=== PATIENT | male | born 1945 | race Caucasian/White ===

== ENCOUNTER 2019-10-03 17:36 | Emergency (ER) | payer OTHER ==
[~2019-10-03] VITALS: Ht 170.2 cm; Wt 108.9 kg
[~2019-10-03 17:36] MED LIST: ATOR40TA PO; COLC.6 PO; COLCRYS0.6 MG PO; OXYACE5T PO; OXYACE7.5T PO; Percocet 5-3251 EACH PO; RXOXYACE PO; TELM80/12.5 PO
[2019-10-03] MEDS ORDERED: ALLO300 PO (18:21)
[2019-10-03] MEDS ORDERED: Carvedilol25 MG PO (18:21)
[2019-10-03] MEDS ORDERED: FUROSEMIDE40 MG PO (18:21)
[2019-10-03] MEDS ORDERED: NEURONTIN300 MG PO (18:22)
[2019-10-03] MEDS ORDERED: LOSARTAN-HCTZ1 EAC1 PO (18:22)
[2019-10-03] MEDS ORDERED: AMLODIPINE BESYL5 MG PO (18:22)
[2019-10-03] MEDS ORDERED: PRED10 PO (18:36)
== END 2019-10-03 18:54 | disposition home or self-care (01) ==
LOC: ER 17:36
DX: M10.9 Gout, unspecified (principal); G89.29 Other chronic pain; I10 Essential (primary) hypertension; Z79.899 Other long term (current) drug therapy
CPT/HCPCS: 96372; 99283-25; J1885; J7512

== ENCOUNTER → 2021-01-12 | Outpatient (CLI) | payer OTHER ==
[~2021-01-12] MED LIST changes: +ALLO300 PO; +AMLODIPINE BESYL5 MG PO; +Carvedilol25 MG PO; +DELTASONE20 MG PO; +FUROSEMIDE40 MG PO; +HYDR1TAB94 PO; +KETO10 PO; +LOSARTAN-HCTZ1 EAC1 PO; +NEURONTIN300 MG PO; +PRED10 PO
[2021-01-12 16:12] LABS: Source, Urine Voided
[2021-01-12 16:39] LABS: BASOPHILS ABSOLUTE AUTO 0.03 K/mm3 (0.00-0.23); BASOPHILS PERCENT AUTO 0 % (0-2); EOSINOPHILS PERCENT AUTO 0 % (0-6); Hematocrit 33.7 % (37.0-53.0); Hemoglobin 10.6 g/dL (13.5-17.5); IMMATURE GRAN ABSOLUTE AUTO 0.05 K/mm3 (0.00-0.10); IMMATURE GRAN PERCENT AUTO 1 % (0-1); LYMPHOCYTES ABSOLUTE AUTO 1.12 K/mm3 (0.84-5.20); LYMPHOCYTES PERCENT AUTO 15 % (21-46); MONOCYTES ABSOLUTE AUTO 0.45 K/mm3 (0.16-1.47); MONOCYTES PERCENT AUTO 6 % (4-13); Mean Corpuscular HGB Conc 31.5 g/dL (31.5-36.5); Mean Corpuscular Volume 96 fL (80-100); Mean Platelet Volume 9.3 fL (9.1-12.4); NEUTROPHILS ABSOLUTE AUTO 6.03 K/mm3 (1.96-9.15); NEUTROPHILS PERCENT AUTO 78 % (41-73); Platelet Count 261 K/mm3 (150-400); RDW Coefficient Variation 14.4 % (11.7-14.2); RDW Standard Deviation 49.4 fL (35.1-46.3); Red Blood Cell Count 3.53 M/mm3 (4.30-5.90); White Blood Cell Count 7.68 K/mm3 (4.00-11.30)
[2021-01-12 16:40] LABS: Appearance, Urine Clear (Clear); Bilirubin, Urine Neg (Neg); Blood, Urine Neg (Neg); Color, Urine Yellow (P-Yellow); Glucose Qualitative, Urine Neg (Neg); Ketones, Urine Neg (Neg); Leukocyte Esterase, Urine Neg (Neg); Nitrite, Urine Neg (Neg); Protein, Urine Neg (Neg); Urobilinogen, Urine NORM (Normal)
[2021-01-12 17:53] LABS: Protein, Urine Random <5.0 mg/dL (0.0-11.9); Protein/Creat Ratio, Ur Random Unable to Calculate
[2021-01-12 20:15] LABS: Albumin, Blood 3.2 g/dL (3.4-5.0); Anion Gap 4 mmol/L (6-16); Blood Urea Nitrogen 33 mg/dL (8-24); Bun/Creatinine Ratio 21.7 (12.0-20.0); CO2, Blood 27 mmol/L (21-32); Calcium, Blood 9.4 mg/dL (8.5-10.1); Chloride, Blood 107 mmol/L (98-108); Creatinine, Blood 1.52 mg/dL (0.60-1.20); Glomerular Filtration Rate 45 (60-); Glucose, Blood 97 mg/dL (70-99); Phosphorus, Blood 2.9 mg/dL (2.5-4.9); Potassium, Blood 3.4 mmol/L (3.5-5.5); Sodium, Blood 138 mmol/L (136-145)
== END | disposition home or self-care (01) ==
LOC: LAB SHORT 16:07 → LAB 16:07
PROVIDERS: Internal Medicine
DX: N18.31 Chronic kidney disease, stage 3a (principal)
CPT/HCPCS: 36415; 80069; 81003; 82570; 84156; 85025

== ENCOUNTER → 2022-11-13 | Outpatient (CLI) | payer OTHER ==
[~2022-11-13] MED LIST changes: +METPRE4DP PO; +OXYC5 PO
[2022-11-14 11:05] LABS: Stool Occult Bld Immuno 1 Negative (NEGATIVE)
== END | disposition home or self-care (01) ==
LOC: LAB 06:30 → LAB SHORT 06:30
PROVIDERS: Family Medicine
DX: D64.9 Anemia, unspecified (principal)
CPT/HCPCS: G0328

== ENCOUNTER 2023-11-25 23:04 | Emergency (ER) | payer OTHER ==
[~2023-11-25] VITALS: Ht 170.2 cm; Wt 104.3 kg
[2023-11-25] MEDS ORDERED: Albuterol 2.5 MG/3 ML VIAL INH SCH (23:20)
[2023-11-25] MEDS ORDERED: Dexamethasone Sod Phos 10 MG/ML 1ML VIAL IV ONE (23:20)
[2023-11-25 23:27] LABS: BASOPHILS ABSOLUTE AUTO 0.03 K/mm3 (0.00-0.23); BASOPHILS PERCENT AUTO 0 % (0-2); EOSINOPHILS ABSOLUTE AUTO 0.01 K/mm3 (0.00-0.68); EOSINOPHILS PERCENT AUTO 0 % (0-6); Hematocrit 39.8 % (37.0-53.0); Hemoglobin 12.8 g/dL (13.5-17.5); IMMATURE GRAN ABSOLUTE AUTO 0.13 K/mm3 (0.00-0.10); IMMATURE GRAN PERCENT AUTO 1 % (0-1); LYMPHOCYTES PERCENT AUTO 9 % (21-46); MONOCYTES ABSOLUTE AUTO 1.12 K/mm3 (0.16-1.47); MONOCYTES PERCENT AUTO 11 % (4-13); Mean Corpuscular HGB 30.3 pg (26.0-34.0); Mean Corpuscular HGB Conc 32.2 g/dL (31.5-36.5); Mean Corpuscular Volume 94 fL (80-100); Mean Platelet Volume 9.1 fL (9.1-12.4); NEUTROPHILS ABSOLUTE AUTO 7.66 K/mm3 (1.96-9.15); NEUTROPHILS PERCENT AUTO 78 % (41-73); Platelet Count 220 K/mm3 (150-400); RDW Coefficient Variation 13.3 % (11.7-14.2); RDW Standard Deviation 45.4 fL (35.1-46.3); Red Blood Cell Count 4.23 M/mm3 (4.30-5.90); White Blood Cell Count 9.85 K/mm3 (4.00-11.30)
[2023-11-25 23:49] LABS: Albumin, Blood 2.5 g/dL (3.4-5.0); Albumin/Globulin Ratio 0.5 (0.8-1.8); Bilirubin, Total 0.8 mg/dL (0.1-1.0); Bun/Creatinine Ratio 15.6 (12.0-20.0); Calcium, Blood 9.9 mg/dL (8.5-10.1); Creatinine, Blood 1.09 mg/dL (0.60-1.20); Globulin, Blood 4.9 g/dL (2.2-4.0); Potassium, Blood 4.1 mmol/L (3.5-5.5); Total Protein, Blood 7.4 g/dL (6.4-8.2)
[2023-11-26 00:56] LABS: Influenza A, PCR NEGATIVE (NEGATIVE); Influenza B, PCR NEGATIVE (NEGATIVE); Resp Syncytial Virus, PCR NEGATIVE (NEGATIVE); SARS-Cov-2 (COVID-19) PCR, MMC NEGATIVE (NEGATIVE)
[2023-11-26] MEDS ORDERED: NS 1,000 ML IV SCH (03:55)
[2023-11-26] MEDS ORDERED: Albuterol 2.5 MG/3 ML VIAL INH SCH (04:20)
[2023-11-26 09:15] VITALS: BP 151/93
== END 2023-11-26 09:30 | disposition short-term general hospital (02) ==
LOC: ER 23:04
PROVIDERS: Emergency Medicine
DX: J44.1 Chronic obstructive pulmonary disease with (acute) exacerbation (principal); K91.89 Other postprocedural complications and disorders of digestive system; Y83.8 Other surgical procedures as the cause of abnormal reaction of the patient, or of later complication, without mention of misadventure at the time of the procedure; I10 Essential (primary) hypertension; Z79.899 Other long term (current) drug therapy
CPT/HCPCS: 0241U; 70491; 71275; 80053; 83605; 83880; 84484; 85025; 93005; 93010; 94644; 94664; 96374-59; 99285-25; J1100; J7030; Q9967

== ENCOUNTER 2024-04-29 20:41 | Inpatient (IN) | payer OTHER ==
[~2024-04-29] VITALS: Ht 170.2 cm; Wt 215.0 kg
[2024-04-29] MEDS ORDERED: Albuterol 2.5 MG/3 ML VIAL INH SCH (21:00)
[2024-04-29 21:03] LABS: BASOPHILS ABSOLUTE AUTO 0.06 K/mm3 (0.00-0.23); BASOPHILS PERCENT AUTO 0 % (0-2); EOSINOPHILS ABSOLUTE AUTO 0.03 K/mm3 (0.00-0.68); EOSINOPHILS PERCENT AUTO 0 % (0-6); Hematocrit 40.9 % (37.0-53.0); Hemoglobin 12.7 g/dL (13.5-17.5); IMMATURE GRAN PERCENT AUTO 1 % (0-1); LYMPHOCYTES ABSOLUTE AUTO 0.58 K/mm3 (0.84-5.20); LYMPHOCYTES PERCENT AUTO 4 % (21-46); MONOCYTES ABSOLUTE AUTO 1.08 K/mm3 (0.16-1.47); MONOCYTES PERCENT AUTO 7 % (4-13); Mean Corpuscular HGB Conc 31.1 g/dL (31.5-36.5); Mean Corpuscular Volume 93 fL (80-100); Mean Platelet Volume 8.6 fL (9.1-12.4); NEUTROPHILS ABSOLUTE AUTO 13.75 K/mm3 (1.96-9.15); NEUTROPHILS PERCENT AUTO 88 % (41-73); Platelet Count 252 K/mm3 (150-400); RDW Coefficient Variation 13.8 % (11.7-14.2); RDW Standard Deviation 47.4 fL (35.1-46.3); Red Blood Cell Count 4.38 M/mm3 (4.30-5.90)
[2024-04-29] MEDS ORDERED: Azithromycin 500 MG in NS 250 ML IV ONE (21:20)
[2024-04-29] MEDS ORDERED: CefTRIAXone Sodium 1,000 MG in NS 100 ML IV ONE (21:20)
[2024-04-29 21:23] LABS: Albumin/Globulin Ratio 0.7 (0.8-1.8); Bilirubin, Total 0.6 mg/dL (0.1-1.0); Bun/Creatinine Ratio 18.3 (12.0-20.0); Calcium, Blood 9.9 mg/dL (8.5-10.1); Creatinine, Blood 0.98 mg/dL (0.60-1.20); Globulin, Blood 4.4 g/dL (2.2-4.0); Magnesium, Blood 1.6 mg/dL (1.6-2.4); Total Protein, Blood 7.4 g/dL (6.4-8.2)
[2024-04-29 21:40] LABS: Influenza A, PCR NEGATIVE (NEGATIVE); Influenza B, PCR NEGATIVE (NEGATIVE); Resp Syncytial Virus, PCR NEGATIVE (NEGATIVE); SARS-Cov-2 (COVID-19) PCR, MMC NEGATIVE (NEGATIVE)
[2024-04-29] MEDS ORDERED: GuaiFENesin 600 MG TabCR PO ONE (22:00)
[2024-04-29] MEDS ORDERED: FLU VACC TS2024-25(6MOS UP)/PF 45 MCG/0.5 ML SYRINGE IM ONE (23:00)
[2024-04-29] MEDS ORDERED: Furosemide 10 MG/ML 4ML Vial IV SCH (23:00)
[2024-04-29] MEDS ORDERED: Ipratropium/Albuterol SulF 2.5-0.5MG/3 ML Amp INH SCH (23:00)
[2024-04-29] MEDS ORDERED: Acetaminophen 325 MG TABLET PO PRN (23:00)
[2024-04-29] MEDS ORDERED: OxyCODONE HCL 5 MG TAB PO PRN (23:00)
[2024-04-29 23:22] LABS: Base Excess Venous 3.8 mmol/L; Bicarbonate Venous 26.3 mmol/L (24.0-30.0); PCO2 Venous 64.5 mmHg (38-42); pH Blood Venous 7.28 (7.34-7.37)
[2024-04-30] VITALS (15 sets, daily range): BP systolic 92–157; BP diastolic 52–134
[2024-04-30] MEDS ORDERED: Albuterol 2.5 MG/3 ML VIAL INH PRN (02:45)
[2024-04-30 03:32] LABS: Base Excess Venous 6.6 mmol/L; PCO2 Venous 37.8 mmHg (38-42); pH Blood Venous 7.51 (7.34-7.37)
[2024-04-30 03:52] LABS: Hematocrit 38.1 % (37.0-53.0); Hemoglobin 11.8 g/dL (13.5-17.5); Mean Corpuscular HGB 28.7 pg (26.0-34.0); Mean Corpuscular Volume 93 fL (80-100); Mean Platelet Volume 8.7 fL (9.1-12.4); Platelet Count 230 K/mm3 (150-400); RDW Coefficient Variation 13.9 % (11.7-14.2); RDW Standard Deviation 47.4 fL (35.1-46.3); Red Blood Cell Count 4.11 M/mm3 (4.30-5.90); White Blood Cell Count 15.49 K/mm3 (4.00-11.30)
[2024-04-30 04:30] LABS: Albumin, Blood 2.5 g/dL (3.4-5.0); Albumin/Globulin Ratio 0.6 (0.8-1.8); Bilirubin, Total 0.6 mg/dL (0.1-1.0); Bun/Creatinine Ratio 18.8 (12.0-20.0); Calcium, Blood 9.3 mg/dL (8.5-10.1); Creatinine, Blood 0.96 mg/dL (0.60-1.20); Potassium, Blood 3.8 mmol/L (3.5-5.5); Total Protein, Blood 6.5 g/dL (6.4-8.2)
[2024-04-30 04:37] LABS: BAND PERCENT MAN 22 % (0-8); BASOPHILS PERCENT MAN 0 % (0-2); EOSINOPHILS PERCENT MAN 0 % (0-6); LYMPHOCYTES ABSOLUTE MAN 0.61 K/mm3 (0.84-5.20); LYMPHOCYTES PERCENT MAN 4 % (21-46); METAMYELOCYTE ABSOLUTE MAN 0.46 K/mm3 (0.00-0.00); METAMYELOCYTE PERCENT MAN 3 % (0-0); MONOCYTES ABSOLUTE MAN 0.77 K/mm3 (0.16-1.47); MONOCYTES PERCENT MAN 5 % (4-13); MYELOCYTE ABSOLUTE MAN 0.15 K/mm3 (0.00-0.00); MYELOCYTE PERCENT MAN 1 % (0-0); NEUTROPHILS ABSOLUTE MAN 13.47 K/mm3 (1.96-9.15); SEG NEUTROPHILS PERCENT MAN 65 % (41-73); TOTAL CELLS COUNTED 100
--- NOTE | 2024-04-30 06:02 | NUR ---
SHIFT SUMMARY PATIENT WAKES TO VERBAL STIMULI. ABLE TO ANSWER SOME ORIENTATION QUESTIONS BUT PATIENT IS LETHARGIC. BP STABLE. ON TELE READING SR 80s. BIPAP ON SINCE ADMISSION. PATIENT TACHYPENIC DURING THE NIGHT WITH RR 25-30. PATIENT WITH MULTIPLE INCONTINENT VOIDS, PUREWICK PLACED. PATIENT ATTEMPTED TO USE BEDPAN FOR BM, UNSUCCESSFUL PATIENT FELL ASLEEP MULTIPLE TIMES. RESIDENT UPDATED WITH PATIENT'S STATUS PATIENT HAS NOT HAD MUCH IMPROVEMENT SINCE ADMISSION, NO ADDITIONAL ORDERS. OTHERWISE, NO CHANGES. WILL REPORT TO DAY SHIFT RN.
[2024-04-30] MEDS ORDERED: Enoxaparin 40 MG/0.4 ML SYR SC SCH (09:00)
[2024-04-30] MEDS ORDERED: Docusate Sodium 100 MG Cap PO SCH (09:00)
[2024-04-30] MEDS ORDERED: GuaiFENesin 600 MG TabCR PO SCH (09:00)
[2024-04-30] MEDS ORDERED: MethylPREDNISolone Sod Succ 125 MG Vial IV SCH ×2 (09:00→21:00)
[2024-04-30] MEDS ORDERED: Lactobacil 2-S.Thermo-Bifido 1 1 Cap PO SCH (09:00)
--- NOTE | 2024-04-30 10:25 | NUR ---
am note this rn assumed care at 0700 from sandrine rn. vital signs stable. tele sinus rhythm 90s. patient is alert and oriented x4. neuro is intact. patient is able to make needs known and uses call light appropriately. denies pain, chest pain/pressure or shortness of breath. see shift assessment for further detials. md tai in to see patient discussed the need to quit meth for patient oversd [facility], discussed using lasix to get the fluid out of patients lungs and having an echo done today. patient agrees with this plan.
--- NOTE | 2024-04-30 10:29 | NUR ---
am note this rn assumed care at 0700 from keaton rn. vital signs stable. sinus rhythm 90s.spo2 >90% on 3l nc. patient is alert and oriented x4. patient is able to make needs known and uses call light appropriately. patient is one person assist to bedside comode. denies pain, chest pain/pressure or shortness of breath. see shift assessment for further detials. md tai in to discuss plan of care and why patient is currently npo due to aspriation risk. speech in to see patient and kept patient npo and recommending a ENT to come see the patient. this rn called md tai to update, orders for SAT CT neck soft tissues ordered.
[2024-04-30] MEDS ORDERED: MetroNIDAZOLE 500MG/NS 100 ml 100 ML IV SCH (10:30)
[2024-04-30] MEDS ORDERED: TIZANIDINE HCL2 M1 PO (11:18)
[2024-04-30] MEDS ORDERED: SPIR25 PO (11:27)
[2024-04-30] MEDS ORDERED: Prednisone10 MG PO (11:30)
[2024-04-30] MEDS ORDERED: PRED20 PO (11:31)
[2024-04-30] MEDS ORDERED: CefTRIAXone Sodium 1,000 MG in NS 100 ML IV ONE (12:00)
[2024-04-30] MEDS ORDERED: MethylPREDNISolone Sod Succ 125 MG Vial IV ONE (12:00)
[2024-04-30] MEDS ORDERED: NS 250 ML IV PRN (12:05)
[2024-04-30 12:31] LABS: Free Thyroxine 1.04 ng/dL (0.70-1.60); Thyroid Stimulating Hormone 0.457 uIU/mL (0.360-4.800)
--- NOTE | 2024-04-30 13:09 | NUR ---
transfer of care/shift summary this rn gave report to fish vallejo on icu. patient left to icu about 1255 with all belongings. patient transfered to icu for closer monitoring due to patient not having gaf reflex, unable to swallow, right side swelling, and neck ct showing tracheal deviation, and patient mentation becoming more sleepy. medication list complete. this rn called daughter abhilash, to update on patient moving to icu. this rn answered all daughters questions and listended to her. daughter stated patient neck surgery was in february of this year in [place]. this rn passed along this info to primary rn.
--- NOTE | 2024-04-30 17:49 | NUR ---
SHIFT SUMMARY PT IS A&OX4, RESPONDING APPROPRIATLY. ON APPLIANCE TECHNICIAN, HR 80'S, MAPS > 65. ON ROOM AIR, SATS IN THE 90'S. UNABLE TO MANAGE OWN SECRETIONS, DEEP SUCTIONS HIMSELF WITH HANDHELD SUCTION. NECK IS SWOLLEN AND TENDER TO THE TOUCH, PT REPORTS PAIN ON PALPATION. NO STRIDOR NOTED. RHONCHI HEARD T/O ALL LUNG MARTINEZ, MORESO ON R SIDE THAN L SIDE. PUREWIK IN PLACE. UP TO COMMODE IN PCU FOR BM PER REPORT. DAUGHTER INVOLVED WITH CARE. NO ACUTE EVENTS THIS SHIFT.
[2024-04-30] MEDS ORDERED: CefTRIAXone Sodium 2,000 MG in NS 100 ML IV SCH (21:00)
[2024-04-30] MEDS ORDERED: Azithromycin 500 MG in NS 250 ML IV SCH (21:00)
[2024-04-30] MEDS ORDERED: CefTRIAXone Sodium 1,000 MG in NS 100 ML IV SCH (21:00)
[2024-04-30] MEDS ORDERED: Ketorolac Tromethamine 15mg Vial IV PRN (23:00)
[2024-05-01 04:50] VITALS: BP 129/77
[2024-05-01 05:18] LABS: Hematocrit 39.4 % (37.0-53.0); Hemoglobin 12.3 g/dL (13.5-17.5); Mean Corpuscular HGB 28.8 pg (26.0-34.0); Mean Corpuscular HGB Conc 31.2 g/dL (31.5-36.5); Mean Corpuscular Volume 92 fL (80-100); Mean Platelet Volume 8.7 fL (9.1-12.4); Platelet Count 241 K/mm3 (150-400); RDW Coefficient Variation 13.9 % (11.7-14.2); RDW Standard Deviation 47.2 fL (35.1-46.3); Red Blood Cell Count 4.27 M/mm3 (4.30-5.90); White Blood Cell Count 14.28 K/mm3 (4.00-11.30)
--- NOTE | 2024-05-01 05:22 | NUR ---
SHIFT SUMMARY ASSUMED CARE OF PT AT 2330. PT IS A/OX4. HEART SOUNDS REGULAR. LUNG SOUNDS HAVE CRACKLES. PT ON 2L NC MOST OF THE NOC BUT TOOK OF O2 WHILE AWAKE AND SATURATIONS REMAINED ABOVE 95%. PT A 1P SBA WITH WALKER. PT USING WICKING SYSTEM DUE TO INCONTINENCE. PT HAD NO NEW COMPLAINTS OTHER THAN NOT BEING ABLE TO SWOLLOW. PT USING SUCTION SYSTEM FOR ORAL SECRETIONS. PT REPORTED PAIN IN HER BACK, MEDICATED PER EMAR.
[2024-05-01 05:38] LABS: BAND PERCENT MAN 10 % (0-8); BASOPHILS PERCENT MAN 0 % (0-2); EOSINOPHILS PERCENT MAN 0 % (0-6); LYMPHOCYTES ABSOLUTE MAN 0.57 K/mm3 (0.84-5.20); LYMPHOCYTES PERCENT MAN 4 % (21-46); MONOCYTES ABSOLUTE MAN 0.14 K/mm3 (0.16-1.47); MONOCYTES PERCENT MAN 1 % (4-13); NEUTROPHILS ABSOLUTE MAN 13.56 K/mm3 (1.96-9.15); SEG NEUTROPHILS PERCENT MAN 85 % (41-73); TOTAL CELLS COUNTED 100
[2024-05-01 05:45] LABS: Bun/Creatinine Ratio 25.7 (12.0-20.0); Calcium, Blood 9.9 mg/dL (8.5-10.1); Creatinine, Blood 1.13 mg/dL (0.60-1.20); Potassium, Blood 3.6 mmol/L (3.5-5.5)
--- NOTE | 2024-05-01 07:27 | NUR ---
ASSUMED CARE OF PATIENT. SLEEPING DURING BEDSIDE REPORT. TELE SR @ 94 c INTERMITTENT DESATURATION DUE TO APNEA.
[2024-05-01 08:10] VITALS: BP 135/83
--- NOTE | 2024-05-01 08:43 | NUR ---
DR CORREA TO BEDSIDE. NOTIFIED OF FREQUENT DESATURATION. NO NEW RESPIRATORY ORDERS. CONTINUE NPO UNTIL SEEN BY ST. START NS @ 100mL/hr CONTINUOUS FOR FLUID MAINTENANCE. CONTINUE WITH BEDSIDE SELF-SUCTIONING.
[2024-05-01] MEDS ORDERED: NS 1,000 ML IV SCH (08:45)
[2024-05-01] MEDS ORDERED: Furosemide 10 MG/ML 4ML Vial IV SCH (09:00)
[2024-05-01] MEDS ORDERED: Famotidine 10 MG/ML 2ML Vial IV SCH (12:15)
[2024-05-01 12:42] VITALS: BP 140/70
[2024-05-01 16:30] VITALS: BP 144/81
--- NOTE | 2024-05-01 18:02 | NUR ---
END OF SHIFT SUMMARY: A&Ox4. PLEASANT AND COOPERATIVE WITH CARE. CALLS APPROPRIATELY AND IS ABLE TO ADVOCATE NEEDS EFFECTIVELY. CONTINENT OF BOWEL AND BLADDER; PUREWICK FOR STRICT I/Os AND LARGE DOSE IV DIURETICS. SBA c FWW TO BATHROOM. C / O HEARTBURT STATING THAT HE ALWAYS GETS THIS TYPE OF INDIGESTION/HEARTBURN ABOUT FIFTEEN MINUTES AFTER HAVING NEBULIZER TREATMENTS. SPEECH THERAPY TO ROOM FOR RE-EVAL, BUT CONTINUES TO STRUGGLE WITH SWALLOWING AND CONTINUED RECOMMENDATION OF NPO. PT DOES EXPRESS HUNGER. BUT REPORTS HE CANNOT SWALLOW BECAUSE IT DOESN T FEEL RIGHT AND CHOKED SEVERAL TIMES WHILE WORKING WITH ST. NS STARTED @ 100mL/hr FOR HYDRATION.
[2024-05-01 20:09] VITALS: BP 156/84
[2024-05-01 23:07] VITALS: BP 144/87
[2024-05-02 03:31] VITALS: BP 156/84
--- NOTE | 2024-05-02 03:34 | NUR ---
HEADING AND PRIMING TOOL SETTER SUMMARY VSS. ALERT AND ORIENTED. TALKATIVE, COOPERATIVE WITH CARE AND POSITIVE AFFECT. SITTING IN RECLINER MOST OF SHIFT. NOW IN BED GETTING READY TO SLEEP. AWAKE MOST OF SHIFT. IVF AND ANTIBIOTICS INFUSING PER MD ORDERS - SEE MAR FOR DETAILS. UP TO BATHROOM WITH ASSIST. LUNG SOUNDS DIMINISHED PER AUSCULTATION. ABLE TO REPOSITION SELF IN BED WITHOUT ASSIST FOR COMFORT. CALL LIGHT IN REACH, RAILS UP X 2 AND BED IN LOW POSITION FOR SAFETY. REMAINS NPO DUE TO THROAT ISSUES. VOICED HE WOULD SPEAK WITH MD IN THE AM RE DESIRES TO DRINK FLUIDS. WILL CONT TO MONITOR
[2024-05-02 07:18] VITALS: BP 158/79
--- NOTE | 2024-05-02 10:02 | NUR ---
AM NOTE: ASSUMED CARE OF PT AFTER RECEIVING REPORT FROM TALITA PERES AT APPROX 0715. PT IS A&Ox4. INITIALLY, PT REPORTED SEEING RED SPOTS IN HIS ROOM AND ATTEMPTED TO SHOW THIS RN WHERE THEY WERE. THIS RN INFORMED PT THEY WERE NOT REAL, AND AFTER A COUPLE MINUTES PT REPORTED THE SPOTS DISAPPEARED. PT REPORTS FEELING BETTER COMPARED TO YESTERDAY, STATES HIS SWELLING HAS IMPROVED. DR CORREA TO BEDSIDE FOR EVAL. PT PASSES BEDSIDE SWALLOW EVAL, SOFT/BITE SIZE DIET HAS BEEN ORDERED.
[2024-05-02 12:43] VITALS: BP 132/76
[2024-05-02 16:12] VITALS: BP 150/81
--- NOTE | 2024-05-02 17:07 | NUR ---
SHIFT SUMMARY: PT HAS BEEN ALERT, ORIENTED TO ALL, CAN OVERESTIMATE ABILITIES AT TIMES BUT HAS BEEN OVERALL COOPERATIVE W/CARE. ONE EPISODE THIS AM WHERE PT APPEARED TO HAVE VISUAL HALLUCINATION - SEE PREVIOUS NOTE, NO OTHER EPISODES THIS SHIFT. PT DENIES SOB, O2 SATS MAINTAINED >93% ON RA - 1L/MIN. PT DENIES CP, SR ON MONITOR, RATE 90s. PT AND PROVIDER AGREE THAT PT's EDEMA IS IMPROVING. PT PASSES BEDSIDE SWALLOW EVAL, SOFT BITE SIZE DIET ORDERED AND PT IS TOLERATING WELL, SWALLOWING PILLS WHOLE IN LIQUID. REPEAT NECK CT SHOWS IMPROVEMENT TO INFLAMMATION. PT SHOWERS TODAY INDEPENDENTLY. NEW IV (POWERGLIDE) PLACED TO SAVANNAH, INFUSING FLUIDS PER ORDER. AT THIS TIME, PT IS RESTING IN RECLINER W/CALL LIGHT IN REACH.
[2024-05-02 20:10] VITALS: BP 150/78
[2024-05-03 00:47] VITALS: BP 162/86
[2024-05-03 04:12] VITALS: BP 160/80
[2024-05-03 04:32] LABS: BASOPHILS ABSOLUTE AUTO 0.01 K/mm3 (0.00-0.23); BASOPHILS PERCENT AUTO 0 % (0-2); EOSINOPHILS PERCENT AUTO 0 % (0-6); Hematocrit 34.5 % (37.0-53.0); Hemoglobin 10.5 g/dL (13.5-17.5); IMMATURE GRAN ABSOLUTE AUTO 0.05 K/mm3 (0.00-0.10); IMMATURE GRAN PERCENT AUTO 1 % (0-1); LYMPHOCYTES ABSOLUTE AUTO 0.44 K/mm3 (0.84-5.20); LYMPHOCYTES PERCENT AUTO 7 % (21-46); MONOCYTES ABSOLUTE AUTO 0.32 K/mm3 (0.16-1.47); MONOCYTES PERCENT AUTO 5 % (4-13); Mean Corpuscular HGB 28.2 pg (26.0-34.0); Mean Corpuscular HGB Conc 30.4 g/dL (31.5-36.5); Mean Corpuscular Volume 93 fL (80-100); NEUTROPHILS ABSOLUTE AUTO 5.58 K/mm3 (1.96-9.15); NEUTROPHILS PERCENT AUTO 87 % (41-73); Platelet Count 176 K/mm3 (150-400); RDW Standard Deviation 47.3 fL (35.1-46.3); Red Blood Cell Count 3.72 M/mm3 (4.30-5.90)
[2024-05-03 04:53] LABS: Bun/Creatinine Ratio 35.5 (12.0-20.0); Calcium, Blood 9.5 mg/dL (8.5-10.1); Creatinine, Blood 0.96 mg/dL (0.60-1.20); Potassium, Blood 3.5 mmol/L (3.5-5.5)
--- NOTE | 2024-05-03 06:09 | NUR ---
PT HAD NO INCREASED WORK OF BREATHING OR C/O DYSPNEA. NO C/O CP. PT ON ROOM AIR WHILE AWAKE MAINTAINS GOOD SPO2 SAT. PT DOES HAVE PERIODS OF APNEA ASLEEP AND IS SUPPLMENTED WITH O2. EVEN WITH SUPPLEMENTAL O2 PT DID HAVE EPISODES OF LOW SPO2 SAT DROPPING RAPIDILY INTO THE 70S WITH QUICK RECOVERY. PT WAS ABLE TO BE WOKEN UP W/O CHANGE IN MENTAL STATUS. PT DOES REPORT THAT HE HAS A CPAP AT HOME. RESPIRATORY THERAPY IS INVOLVED IN CARE. PT IS AOX4 WHILE AWAKE BUT DID HAVE EPISODES OF CONFUSION DURING THE NIGHT, BELIEVING HE WAS AT HOME. PT WAS EASILY REORIENTED TO BEING IN THE HOSPITAL. PT IS COOPERATIVE BUT OVER-ESTIMATES ABILITY AND ATTEMPTS TO BE INDEPENDENT W/O CALLING NURSING STAFF PRIOR TO GETTING OOB OR OUT OF CHAIR. BED AND CHAIR ALARMS IN PLACE. IV FLUID INFUSION AND IV ABX ARE BEING TOLERATED WELL. PT CONTINUES TO HAVE GOOD URINE OUTPUT BUT HAS SPILLED URINAL UNABLE TO MEASURE X1.
[2024-05-03 07:36] VITALS: BP 170/96
[2024-05-03] MEDS ORDERED: Losartan Potassium 50 MG Tab PO SCH (09:00)
[2024-05-03] MEDS ORDERED: Spironolactone 25 MG Tab PO SCH (09:00)
[2024-05-03] MEDS ORDERED: HydroCHLOROthiazide 25 mg Tab PO SCH (09:00)
[2024-05-03] MEDS ORDERED: PredniSONE 20 MG Tab PO SCH (09:00)
[2024-05-03] MEDS ORDERED: Allopurinol 300 MG Tab PO SCH (09:00)
[2024-05-03 11:35] VITALS: BP 138/79
[2024-05-03] MEDS ORDERED: Potassium Chloride 40 MEQ in NS 250 ML IV ONE (11:35)
[2024-05-03 15:52] VITALS: BP 158/84
--- NOTE | 2024-05-03 18:28 | NUR ---
SHIFT SUMMARY: PT HAS BEEN A&Ox4, ANSWERING QUESTIONS APPROPRIATELY, COOPERATIVE W/CARE. NO CONCERNS FOR HALLUCINATIONS THIS SHIFT. PT WAS A LITTLE AGGRAVATED THIS AM WHEN HE FOUND OUT HIS NEPHEW HAD NOT BEEN FEEDING THE PT's ANIMALS SINCE PT WAS ADMITTED. PT SAID HE NEEDED TO LEAVE TODAY SO HE COULD ADDRESS THE SITUATION, BUT WAS AGREEABLE TO STAY AFTER HEARING FROM HIS DAUGHTER THAT SHE WOULD TAKE CARE OF THEM. O2 SATS MAINTAINED >93% WHILE AWAKE ON RA, BUT PT DESATURATES INTO 70s AT TIMES WHEN SLEEPING. PT STATES HE HAS A HOME CPAP BUT IS NOT COMPLIANT WITH WEARING IT. EDUCATION PROVIDED RE: IMPORTANCE OF USING THE MACHINE, PT IS CURRENTLY WILLING TO TRY CPAP TONIGHT, RT IS AWARE. TELE WAS DC'd TODAY AND PT STATUS CHANGED TO MEDICAL. EDEMA CONTINUES TO BLE, IV FLUIDS DC'd THIS SHIFT. PT EVAL COMPLETED TODAY. PT W/2 SOFT BMs TODAY, USING URINAL W/MINIMAL ASSISTANCE. ST RE-EVALUATED PT TODAY, DIET CHANGED TO PUREE, ORDERS PLACED FOR MODIFIED BARIUM SWALLOW TO TAKE PLACE TOMORROW AT 1100. AT THIS TIME, PT IS RESTING IN RECLINER W/CALL LIGHT IN REACH.
[2024-05-03 21:40] VITALS: BP 169/90
[2024-05-03] MEDS ORDERED: Melatonin 5 MG Tablet PO PRN (22:40)
[2024-05-03] MEDS ORDERED: OLANZapine 10 MG Vial IM PRN (23:50)
[2024-05-04] VITALS (17 sets, daily range): BP systolic 121–172; BP diastolic 66–106
--- NOTE | 2024-05-04 01:29 | NUR ---
PT EXTREMELY CONFUSED. BECAME AGITATED AND REFUSING TO STAY IN BED OR CHAIR. BROKE CAP OFF OF POWERGLIDE. ANOTHER RN ABLE TO SALVAGE LINE. PT STATING THAT HE WAS GOING TO LEAVE. STAFF TOLD HIM THE DOCTOR WAS COMING TO SPEAK WITH HIM; PT STATED IF THE DOCTOR TRIED TO STOP HIM FROM LEAVING, HE (THE PT) "WOULD KNOCK HIS ASS OUT" (THE MD)... PT CALLED HIS NEPHEW, WHOM HE HAS TOLD STAFF SEVERAL TIMES IS A LEADER IN THE [id number]. TOLD HIS NEPHEW TO PROMISE "NOT TO DO ANYTHING" OR "HURT ANYONE" WHEN HE COMES UP HERE TO PICK THE PT UP. MD CAME TO SEE PT; PT ANSWERED ALL QUESTIONS APPROPRIATELY WHILE STILL MAKING NON-SENSICLE COMMENTS. RESIDENT WAS GOING TO CALL PRIMARY MD. ORDERED ZYPREXA IM. ADMINISTERED TO PT. ASSISTED PT TO RECLINER, HE REFUSES TO GET BACK INTO BED. CHAIR ALARM SET. MEDICATION APPEARS INEFFECTIVE. PT CONTINUES TO GET UP FROM CHAIR, SETTING OF ALARM. ATTEMPTED SEVERAL TIMES TO ADMINISTER IV ABT; PT REFUSED. PT CONTINUES TO HAVE HALLUCINATIONS AND CARRY ON CONVERSATIONS WITH PEOPLE THAT AREN'T THERE. HAVE TRIED TO REORIENT UNSUCCESSFULLY; PT ARGUES THAT THE PEOPLE ARE ACTUALLY THERE.
[2024-05-04 02:41] LABS: Base Excess Venous 5.9 mmol/L; pH Blood Venous 7.44 (7.34-7.37)
--- NOTE | 2024-05-04 03:20 | NUR ---
PT IN BUE SOFT RESTRAINTS. MALE PUREWICK PLACED, CONNECTED TO LWS. 5L nc IN PLACE BUT PT INTERMITTENTLY DESATS ALL THE WAY DOWN TO 60% WITH A GOOD WAVE. CALLED RT AND REQUESTED AN OXYMASK D/T PT BEING A MOUTH BREATHER WHEN HE SLEEPS.
[2024-05-04 04:17] LABS: BASOPHILS ABSOLUTE AUTO 0.01 K/mm3 (0.00-0.23); BASOPHILS PERCENT AUTO 0 % (0-2); EOSINOPHILS PERCENT AUTO 0 % (0-6); Hematocrit 36.8 % (37.0-53.0); Hemoglobin 11.3 g/dL (13.5-17.5); IMMATURE GRAN ABSOLUTE AUTO 0.04 K/mm3 (0.00-0.10); IMMATURE GRAN PERCENT AUTO 1 % (0-1); LYMPHOCYTES PERCENT AUTO 17 % (21-46); MONOCYTES PERCENT AUTO 12 % (4-13); Mean Corpuscular HGB Conc 30.7 g/dL (31.5-36.5); Mean Corpuscular Volume 91 fL (80-100); Mean Platelet Volume 9.1 fL (9.1-12.4); NEUTROPHILS ABSOLUTE AUTO 4.01 K/mm3 (1.96-9.15); NEUTROPHILS PERCENT AUTO 70 % (41-73); Platelet Count 207 K/mm3 (150-400); RDW Coefficient Variation 13.9 % (11.7-14.2); RDW Standard Deviation 47.2 fL (35.1-46.3); Red Blood Cell Count 4.03 M/mm3 (4.30-5.90); White Blood Cell Count 5.76 K/mm3 (4.00-11.30)
[2024-05-04 04:39] LABS: Albumin, Blood 2.7 g/dL (3.4-5.0); Albumin/Globulin Ratio 0.7 (0.8-1.8); Bilirubin, Total 0.3 mg/dL (0.1-1.0); Bun/Creatinine Ratio 27.4 (12.0-20.0); Calcium, Blood 9.8 mg/dL (8.5-10.1); Creatinine, Blood 0.88 mg/dL (0.60-1.20); Globulin, Blood 3.7 g/dL (2.2-4.0); Potassium, Blood 3.7 mmol/L (3.5-5.5); Total Protein, Blood 6.4 g/dL (6.4-8.2)
[2024-05-04] MEDS ORDERED: dexmedeTOMIDine 100 ML IV SCH (07:45)
[2024-05-04] MEDS ORDERED: MethylPREDNISolone Sod Succ 125 MG Vial IV SCH (08:00)
--- NOTE | 2024-05-04 08:00 | NUR ---
NURSING PCU DAYSHIFT: Assumed care of pt at approx 0700. Upon entering room, pt had legs over side of the bed, pulling at b/l wrist restraints, and was agitated. Respirations rapid w/accessory muscle use, exp wheezes t/o, O2 sat mid 90's w/2L O2 via mask, continuous O2 monitoring in place. No tele, HRR 80-90's, SBP 140's, BLE edema which had improved from previous day. PG to RICHARD, s/l. [place] system in place draining clear/yellow urine w/700cc of output this a.m. Pt unable to be directed this a.m. Attempted to reposition several times w/o success. Pt frequently trying to hit/kick staff when assessing/providing care. RT at bedside for assessment and breathing tx, mild improvement noted. Hospitalist to bedside to discuss plan of care. Decision made to xfer to ICU for precedex gtt and CPAP. Report provided to accepting RN, farhat completed via bed.
[2024-05-04] MEDS ORDERED: HydrALAZINE HCl 20 MG / ML 1ML Vial IV PRN (14:30)
--- NOTE | 2024-05-04 18:36 | NUR ---
PT RECIEVED FROM PCU. TRANSFERED TOICU FOR AGITATION THROUGHOUT THE NIGHT. THRASHING AROUND IN THE BED, NOT REDIRECTABLE. PRECEDEX GTT STARTED AND EVENTUALLY TITRATED OFF FOR RASS OF -3. PATIENT RESPONDS TO VOICE AT END OF SHIFT BUT UNABLE TO MAINTAIN SAFETY. VEST RESTRAINT REMAINS IN PLACE. FAMILY AT BEDSIDE SAYING THAT THEY HAVE NOTICED THE PATIENT HAVE AMS FOLLOWING LOSARTAN DOSE FROM BEFORE, PCP AND CARDIOLOGY HAVE D/C'D OUTPATIENT DOSE. NOT NOTED ALLERGY AT THIS TIME. CHART REVIEWED SHOWED LOSARTAN DOSE WAS GIVEN YESTERDAY AM FOR THE FIRST TIME. PROVIDER UPDATED AND MED ORDERS CHANGED. PT REMAINS ON 2LNC. VSS, AFEBRILE. ONE EPISODE OF HTN, PRN HYDRALAZINE GIVEN ONCE; GOAL OF SBP <160.
--- NOTE | 2024-05-04 21:47 | NUR ---
ASSUMED CARE: ASSUMED CARE OF PT AT 1900. PT ALERT AND ORIENTED, FOLLOWS DIRECTION AND IS COOPERATIVE WITH CARE. ON 2L NC WITH SPO2 MID TO HIGH 90'S, LUNGS CLEAR/DIM. DENIES SOB. DENIES PAIN T/O. PHOTOGRAPHIC PRESS SCREWMAKER IN PLACE, SR WITH HR 70'S. SBP 150-170. DENIES CP/PRESSURE. PUREWICK IN PLACE, DRAINING TO SUCTION YELLOW URINE. POWERGLIDE TO SAVANNAH INTACT AND INFUSING. PT VERY DROWSY BUT AWAKENS TO VERBAL STIMULI AND IS ABLE TO HOLD A CONVERSATION. MOVING IN BED WITH ASSIST. HELD PO MEDICATION THIS EVENING D/T PT NOT BEING AWAKE ENOUGH TO SAFELY SWALLOW. BED LOW AND LOCKED, CALL LIGHT IN REACH. VINH SANON ASSUMED CARE OF PT AT 2144. REPORT GIVEN.
[2024-05-05] VITALS (14 sets, daily range): BP systolic 120–174; BP diastolic 66–122
[2024-05-05 06:11] LABS: BASOPHILS ABSOLUTE AUTO 0.01 K/mm3 (0.00-0.23); BASOPHILS PERCENT AUTO 0 % (0-2); EOSINOPHILS PERCENT AUTO 0 % (0-6); Hematocrit 40.4 % (37.0-53.0); Hemoglobin 12.3 g/dL (13.5-17.5); IMMATURE GRAN ABSOLUTE AUTO 0.03 K/mm3 (0.00-0.10); IMMATURE GRAN PERCENT AUTO 1 % (0-1); LYMPHOCYTES PERCENT AUTO 7 % (21-46); MONOCYTES ABSOLUTE AUTO 0.45 K/mm3 (0.16-1.47); MONOCYTES PERCENT AUTO 11 % (4-13); Mean Corpuscular HGB 28.2 pg (26.0-34.0); Mean Corpuscular HGB Conc 30.4 g/dL (31.5-36.5); Mean Corpuscular Volume 93 fL (80-100); NEUTROPHILS PERCENT AUTO 82 % (41-73); Platelet Count 189 K/mm3 (150-400); RDW Coefficient Variation 13.8 % (11.7-14.2); RDW Standard Deviation 47.1 fL (35.1-46.3); Red Blood Cell Count 4.36 M/mm3 (4.30-5.90); White Blood Cell Count 4.29 K/mm3 (4.00-11.30)
[2024-05-05 06:43] LABS: BASOPHILS PERCENT MAN 0 % (0-2); EOSINOPHILS ABSOLUTE MAN 0.04 K/mm3 (0.00-0.68); EOSINOPHILS PERCENT MAN 1 % (0-6); LYMPHOCYTES ABSOLUTE MAN 0.34 K/mm3 (0.84-5.20); LYMPHOCYTES PERCENT MAN 8 % (21-46); METAMYELOCYTE ABSOLUTE MAN 0.08 K/mm3 (0.00-0.00); METAMYELOCYTE PERCENT MAN 2 % (0-0); MONOCYTES ABSOLUTE MAN 0.25 K/mm3 (0.16-1.47); MONOCYTES PERCENT MAN 6 % (4-13); NEUTROPHILS ABSOLUTE MAN 3.56 K/mm3 (1.96-9.15); SEG NEUTROPHILS PERCENT MAN 83 % (41-73); TOTAL CELLS COUNTED 100
[2024-05-05 07:10] LABS: Bun/Creatinine Ratio 26.2 (12.0-20.0); Calcium, Blood 9.7 mg/dL (8.5-10.1); Creatinine, Blood 0.8 mg/dL (0.60-1.20); Potassium, Blood 3.8 mmol/L (3.5-5.5)
--- NOTE | 2024-05-05 09:06 | NUR ---
Dr. Reddy here to see the pt. Attempted to reach PT for today to coordinate eval/treatment, but had to leave a message. Pt was seen by Speech therapist, Ashley. He took his pills whole with applesauce with no difficulty. Also had puree breakfast with nectar thick liquids this morning, supervised by ASSEMBLER TUBING while sitting upright in the bed.\
--- NOTE | 2024-05-05 14:09 | NUR ---
Telephone report given to Gabbi Sandoval Pt to transfer to [facility] on medical floor shortly.
--- NOTE | 2024-05-05 14:12 | NUR ---
Call to Beti snell's daughter to notify her of pending transfer to room 310.
--- NOTE | 2024-05-05 17:53 | NUR ---
TRANSFER AND SHIFT SUMMARY PATIENT TRANSFERED FROM ICU. PATIENT ARRIVED VIA WHEELCHAIR. PATIENT ALERT AND INTERACTIVE. PATIENT SHOWERED AFTER ARRIVAL. PATIENT ABLE TO AMBULATE WITH WALKER TO SHOWER. PATIENT NEEDING CUING FOR SAFETY. PATIENT FORGETFUL BUT EASILY REORIENTED.
[2024-05-06 02:06] VITALS: BP 159/117
--- NOTE | 2024-05-06 04:27 | NUR ---
SHIFT SUMMARY 79 YR F ADMITTED ON 04/30/24. FULL CODE. NO ACUTE CHANGES THIS SHIFT. PT HAS BEEN A&O AND INTERACTIVE THIS SHIFT BUT DOES HAVE SOME INTERMITTENT CONFUSION. HE SAT UP IN THE CHAIR WATCHING TV UNTIL 0200 WHEN HE DECIDED TO GET INTO BED AND GO TO SLEEP. HE CALLS APPROPRIATELY FOR ASSISTANCE. HE WAS GIVEN 10 MG HYDRALAZINE AT 0300 FOR ELEVATED BP. HE STATED THAT HE HAS NOT HAD HIS BLOOD PRESSURE MEDS SINCE BEING HOSPITALIZED. HE IS PLEASANT AND COOPERATIVE WITH CARE. BED IN LOW POSITION AND CALL LIGHT IN REACH.
[2024-05-06 07:41] VITALS: BP 167/97
[2024-05-06 09:00] LABS: BASOPHILS ABSOLUTE AUTO 0.01 K/mm3 (0.00-0.23); BASOPHILS PERCENT AUTO 0 % (0-2); EOSINOPHILS PERCENT AUTO 0 % (0-6); Hematocrit 42.4 % (37.0-53.0); Hemoglobin 13.3 g/dL (13.5-17.5); IMMATURE GRAN ABSOLUTE AUTO 0.13 K/mm3 (0.00-0.10); IMMATURE GRAN PERCENT AUTO 2 % (0-1); LYMPHOCYTES ABSOLUTE AUTO 0.29 K/mm3 (0.84-5.20); LYMPHOCYTES PERCENT AUTO 5 % (21-46); MONOCYTES ABSOLUTE AUTO 0.21 K/mm3 (0.16-1.47); MONOCYTES PERCENT AUTO 4 % (4-13); Mean Corpuscular HGB 28.2 pg (26.0-34.0); Mean Corpuscular HGB Conc 31.4 g/dL (31.5-36.5); Mean Corpuscular Volume 90 fL (80-100); NEUTROPHILS ABSOLUTE AUTO 5.01 K/mm3 (1.96-9.15); NEUTROPHILS PERCENT AUTO 89 % (41-73); RDW Coefficient Variation 14.2 % (11.7-14.2); RDW Standard Deviation 46.5 fL (35.1-46.3); Red Blood Cell Count 4.72 M/mm3 (4.30-5.90); White Blood Cell Count 5.65 K/mm3 (4.00-11.30)
[2024-05-06 09:08] LABS: Mean Platelet Volume 9.7 fL (9.1-12.4); Platelet Count 232 K/mm3 (150-400)
[2024-05-06 09:22] LABS: Bun/Creatinine Ratio 30.1 (12.0-20.0); Calcium, Blood 9.9 mg/dL (8.5-10.1); Creatinine, Blood 0.9 mg/dL (0.60-1.20); Potassium, Blood 3.7 mmol/L (3.5-5.5)
--- NOTE | 2024-05-06 09:40 | NUR ---
ASSUMED CARE OF PATIENT. AWAKE AND USING RESTROOM DURING SHIFT CHANGE REPORT. NO ACUTE CONCERNS.
[2024-05-06 15:51] VITALS: BP 171/87
[2024-05-06] MEDS ORDERED: MethylPREDNISolone Sod Succ 125 MG Vial IV SCH (16:00)
[2024-05-06] MEDS ORDERED: Carvedilol 3.125 MG Tab PO SCH (17:00)
--- NOTE | 2024-05-06 18:27 | NUR ---
END OF SHIFT SUMMARY: A&Ox3-4. FORGETFUL AND EPISODIC CONFUSION. TODAY, THOUGHT HE WAS AT HOME AND WANTED HIS OZEMPIC PEN FROM THE [facility] TO ADMINISTER HIS WEEKLY DOSE; ONCE REDIRECTED AND REMEMBERED HE WAS IN THE HOSPITAL, HE ASKED TO CALL HIS DAUGHTER TO HAVE HER BRING MEDICATION UP FROM [facility]. PLEASANT AND COOPERATIVE WITH CARE. CALLS APPROPRIATELY AND IS ABLE TO ADVOCATE NEEDS EFFECTIVELY. 1PA c FWW & GB TO BSC AND RECLINER. PARTICIPATED PT TODAY. SEEN BY SPEECH THERAPY AND DIET ADVANCED TO SOFT AND BITE-SIZED FROM PUREE. CONTINUE WITH MEDS VIA APPLESAUCE. CONTINENT OF BOWEL AND BLADDER. NO C / O PAIN OR DISCOMFORT. CALLED HIS DAUGHTER REPEATEDLY, TALKING ABOUT MEDICATIONS FOR HIS BLOOD PRESSURE AND GOUT, BOTH OF WHICH HE IS RECEIVING. CARVEDILOL ADDED FOR BP CONTROL. DAUGHTER IN TO VISIT BECAUSE PATIENT TOLD HER PT WANTED TO TALK TO HER, BUT TOLD PT THAT DAUGHTER WANTED TO TALK TO PT. NEITHER REQUESTED TO SPEAK WITH THE OTHER. BECAME INCREASINGLY CONFUSED AROUND [id number] C/W , REQUIRING REDIRECTION. BED IN LOWEST POSITION, CALL LIGHT WITHIN REACH, ALL NEEDS MET. REPORT TO ONCOMING NURSE.
[2024-05-06 19:49] VITALS: BP 149/73
[2024-05-07] MEDS ORDERED: Ipratropium/Albuterol SulF 2.5-0.5MG/3 ML Amp INH SCH (00:59)
[2024-05-07 02:32] VITALS: BP 177/91
[2024-05-07 05:06] LABS: BASOPHILS ABSOLUTE AUTO 0.02 K/mm3 (0.00-0.23); BASOPHILS PERCENT AUTO 0 % (0-2); EOSINOPHILS PERCENT AUTO 0 % (0-6); Hematocrit 39.4 % (37.0-53.0); Hemoglobin 12.3 g/dL (13.5-17.5); IMMATURE GRAN ABSOLUTE AUTO 0.15 K/mm3 (0.00-0.10); IMMATURE GRAN PERCENT AUTO 2 % (0-1); LYMPHOCYTES ABSOLUTE AUTO 0.27 K/mm3 (0.84-5.20); LYMPHOCYTES PERCENT AUTO 4 % (21-46); MONOCYTES ABSOLUTE AUTO 0.26 K/mm3 (0.16-1.47); MONOCYTES PERCENT AUTO 4 % (4-13); Mean Corpuscular HGB 28.3 pg (26.0-34.0); Mean Corpuscular HGB Conc 31.2 g/dL (31.5-36.5); Mean Corpuscular Volume 91 fL (80-100); NEUTROPHILS ABSOLUTE AUTO 6.07 K/mm3 (1.96-9.15); NEUTROPHILS PERCENT AUTO 90 % (41-73); Platelet Count 228 K/mm3 (150-400); RDW Coefficient Variation 14.5 % (11.7-14.2); RDW Standard Deviation 48.7 fL (35.1-46.3); Red Blood Cell Count 4.35 M/mm3 (4.30-5.90); White Blood Cell Count 6.77 K/mm3 (4.00-11.30)
[2024-05-07 05:48] LABS: Calcium, Blood 9.5 mg/dL (8.5-10.1)
--- NOTE | 2024-05-07 06:09 | NUR ---
SHIFT SUMMARY 79 YR M ADMITTED ON 04/30/24. FULL CODE. NO ACUTE CHANGES THIS SHIFT. PT STATED THAT HE WAS UNABLE TO SLEEP AND HAD NOT SLEPT IN DAYS. HE WAS VERY RESTLESS AND STILL HAVING CONFUSION. HE ASKED THIS NURSE TO GET IN [facility] RIGHT THERE AND GET HIS OZEMPIC OUT FOR HIM. HE WAS REMINDED THAT HE WAS IN THE HOSPITAL AND HE STATED "OH, YEAH" THEN ASKED ME TO FEED HIS DOG. HE WAS HYPERTENSIVE AGAIN THIS SHIFT AND WAS GIVEN 15 MG HYDROLYZINE. EARLY THIS A.M. PT STATED THAT HE WAS LEAVING TODAY TO GO TO AN APPOINTMENT TO DEAL WITH LEGAL MATTERS. IT IS NOT KNOWN IF HE ACTUALLY HAS AN APPT OR NOT. PT WAS GIVEN AN IM OF ZYPREXA AT 2130 TO RELEIVE ANXIETY AND AID IN SLEEP. PT SLEPT VERY BRIEFLY A COUPLE OF TIMES THROUGHOUT THE NIGHT. WILL CONTINUE TO MONITOR. BED IN LOW POSITION AND CALL LIGHT IN REACH.
[2024-05-07 07:22] VITALS: BP 158/107
[2024-05-07] MEDS ORDERED: Carvedilol 6.25 MG Tab PO SCH (08:00)
[2024-05-07] MEDS ORDERED: TraZODone HCl 50 MG Tab PO PRN (08:05)
[2024-05-07] MEDS ORDERED: PredniSONE 20 MG Tab PO SCH (09:00)
[2024-05-07 10:51] VITALS: BP 153/83
[2024-05-07] MEDS ORDERED: CARV6.25 PO (11:21)
[2024-05-07] MEDS ORDERED: IPRAT-ALBUT 0.5-3 ML INH (11:22)
[2024-05-07] MEDS ORDERED: VISBIOME 112.51 EACH PO (11:23)
[2024-05-07 15:46] VITALS: BP 149/85
--- NOTE | 2024-05-07 17:37 | NUR ---
DISCHARGE SUMMARY PT DC THIS SHIFT HOME WITH HOME HEALTH. PT WAS ESCORED TO PRIVATE VEHICEL VIA WHEELCHAIR BY NANOSCIENCE TECHNICIAN AND PT DAUGHTER TO PRIVATE VEHICLE. DC INSTRUCTION WAS GONE OVER WITH PT WHOM STATED UNDERSTANDING.
[2024-05-07] MEDS ORDERED: Famotidine 20 MG Tab PO SCH (21:00)
== END 2024-05-07 17:37 | disposition home health service (06) | DRG 193 ==
LOC: ER 20:41 → PCU 04-30 → ICUE 04-30 13:17 → PCU 04-30 23:38 → ICUE 05-04 08:01 → MEDS 05-05 14:41 → ENPENDDIS 05-07 10:37 → MEDS 05-07 17:37
PROVIDERS: Internal Medicine; Student in an Organized Health Care Education/Training Program; ADMIT Student in an Organized Health Care Education/Training Program
DX: J18.9 Pneumonia, unspecified organism (principal); I50.33 Acute on chronic diastolic (congestive) heart failure; J96.01 Acute respiratory failure with hypoxia; J96.02 Acute respiratory failure with hypercapnia; I13.0 Hypertensive heart and chronic kidney disease with heart failure and stage 1 through stage 4 chronic kidney disease, or unspecified chronic kidney disease; J44.1 Chronic obstructive pulmonary disease with (acute) exacerbation; J44.0 Chronic obstructive pulmonary disease with (acute) lower respiratory infection; G93.40 Encephalopathy, unspecified; E66.9 Obesity, unspecified; J38.4 Edema of larynx; D63.1 Anemia in chronic kidney disease; G47.33 Obstructive sleep apnea (adult) (pediatric); I25.10 Atherosclerotic heart disease of native coronary artery without angina pectoris; I65.22 Occlusion and stenosis of left carotid artery; N18.9 Chronic kidney disease, unspecified; E78.5 Hyperlipidemia, unspecified; M10.9 Gout, unspecified; R73.9 Hyperglycemia, unspecified; Z95.1 Presence of aortocoronary bypass graft; Z98.1 Arthrodesis status; Z98.890 Other specified postprocedural states; Z79.899 Other long term (current) drug therapy
CPT/HCPCS: 0241U; 36415; 70491; 71045; 71260; 80048; 80053; 82803; 83735; 83880; 84145; 84439; 84443; 84484; 85025; 85379; 87070; 87205; 92526; 92610; 93005; 93010; 93306; 94640; 94660; 94664; 94760; 94761; 94762; 96365; 96367; 96375; 97110; 97112; 97116; 97161; 97530; 99285-25; A9270; J0360; J0456; J0696; J1650; J1885; J1940; J2919; J3480; J7030; J7050; J7512; Q9967

== ENCOUNTER 2024-06-24 13:04 | Emergency (ER) | payer OTHER ==
[~2024-06-24] VITALS: Ht 165.1 cm; Wt 99.8 kg
[~2024-06-24 13:04] MED LIST changes: +CARV6.25 PO; +IPRAT-ALBUT 0.5-3 ML INH; +PRED20 PO; +Prednisone10 MG PO; +SPIR25 PO; +TIZANIDINE HCL2 M1 PO; +VISBIOME 112.51 EACH PO
[2024-06-24 13:32] VITALS: BP 185/111
[2024-06-24] MEDS ORDERED: Colchicine 0.6 MG TAB PO ONE ×3 (13:35→14:30)
[2024-06-24] MEDS ORDERED: HYDROcodone 5-APAP 325 TAB PO ONE (13:40)
[2024-06-24] MEDS ORDERED: PredniSONE 20 MG Tab PO ONE ×2 (13:40→13:50)
[2024-06-24] MEDS ORDERED: Spironolactone 25 MG Tab PO ONE (13:45)
[2024-06-24] MEDS ORDERED: Prednisone20 MG PO (14:27)
[2024-06-24] MEDS ORDERED: Indomethacin50 MG PO (14:27)
== END 2024-06-24 15:02 | disposition home or self-care (01) ==
LOC: ER 13:04
DX: M10.9 Gout, unspecified (principal); R60.0 Localized edema; I10 Essential (primary) hypertension; J44.9 Chronic obstructive pulmonary disease, unspecified
CPT/HCPCS: 99283; A9270; J7512

== ENCOUNTER 2024-07-06 17:30 | Inpatient (IN) | payer OTHER ==
[~2024-07-06] VITALS: Ht 170.2 cm; Wt 84.8 kg
[~2024-07-06 17:30] MED LIST changes: +ATOR20 PO; -ATOR40TA PO; +Indomethacin50 MG PO; +Prednisone20 MG PO
[2024-07-06] MEDS ORDERED: Furosemide 10 MG/ML 4ML Vial IV ONE (17:45)
[2024-07-06 18:58] LABS: BASOPHILS ABSOLUTE AUTO 0.04 K/mm3 (0.00-0.23); BASOPHILS PERCENT AUTO 0 % (0-2); EOSINOPHILS ABSOLUTE AUTO 0.09 K/mm3 (0.00-0.68); EOSINOPHILS PERCENT AUTO 1 % (0-6); Hematocrit 34.1 % (37.0-53.0); IMMATURE GRAN ABSOLUTE AUTO 0.11 K/mm3 (0.00-0.10); IMMATURE GRAN PERCENT AUTO 1 % (0-1); LYMPHOCYTES ABSOLUTE AUTO 0.82 K/mm3 (0.84-5.20); LYMPHOCYTES PERCENT AUTO 8 % (21-46); MONOCYTES ABSOLUTE AUTO 0.87 K/mm3 (0.16-1.47); MONOCYTES PERCENT AUTO 9 % (4-13); Mean Corpuscular HGB 29.3 pg (26.0-34.0); Mean Corpuscular HGB Conc 32.3 g/dL (31.5-36.5); Mean Corpuscular Volume 91 fL (80-100); Mean Platelet Volume 10.7 fL (9.1-12.4); NEUTROPHILS ABSOLUTE AUTO 8.18 K/mm3 (1.96-9.15); NEUTROPHILS PERCENT AUTO 81 % (41-73); Platelet Count 202 K/mm3 (150-400); RDW Coefficient Variation 17.8 % (11.7-14.2); RDW Standard Deviation 59.2 fL (35.1-46.3); Red Blood Cell Count 3.76 M/mm3 (4.30-5.90); White Blood Cell Count 10.11 K/mm3 (4.00-11.30)
[2024-07-06] MEDS ORDERED: CARVEDILOL25 M9 PO (19:11)
[2024-07-06] MEDS ORDERED: AMLODIPINE BESYL5 MG PO (19:11)
[2024-07-06] MEDS ORDERED: PREGABALIN100 MG PO (19:12)
[2024-07-06] MEDS ORDERED: TORSE20 PO (19:13)
[2024-07-06] MEDS ORDERED: Prednisone10 MG (19:15)
[2024-07-06 20:13] LABS: Magnesium, Blood 1.8 mg/dL (1.6-2.4)
[2024-07-06 20:18] LABS: Albumin/Globulin Ratio 0.4 (0.8-1.8); Bilirubin, Total 0.6 mg/dL (0.1-1.0); Bun/Creatinine Ratio 26.2 (12.0-20.0); Calcium, Blood 9.2 mg/dL (8.5-10.1); Creatinine, Blood 0.99 mg/dL (0.60-1.20); Globulin, Blood 5.3 g/dL (2.2-4.0); Potassium, Blood 3.8 mmol/L (3.5-5.5); Total Protein, Blood 7.3 g/dL (6.4-8.2)
[2024-07-06 20:48] LABS: Source, Urine Clean Catch
[2024-07-06 20:51] LABS: Bilirubin, Urine Neg (Neg); Blood, Urine 1+ (Neg); Glucose Qualitative, Urine Neg (Neg); Ketones, Urine Neg (Neg); Leukocyte Esterase, Urine Neg (Neg); Nitrite, Urine Neg (Neg); Protein, Urine Neg (Neg); Urobilinogen, Urine NORM (Normal)
[2024-07-06 20:59] LABS: Appearance, Urine Clear (Clear); Color, Urine Pale Yellow (P-Yellow)
[2024-07-06 21:00] LABS: Bacteria Few /hpf; Squamous Epithelial Cells Rare /hpf (Few); White Blood Cells, Urine 0-2 /hpf (0-5)
[2024-07-06] MEDS ORDERED: Ondansetron HCl 2 MG / ML 2ML Vial IV PRN (22:50)
[2024-07-06] MEDS ORDERED: Tiotropium Bromide 2.5 MCG/ACT MIST INHAL (10 ACT/4 GM) INH SCH (22:50)
[2024-07-06] MEDS ORDERED: Magnesium Hydroxide Conc 10 ML UDC PO PRN (22:50)
[2024-07-06] MEDS ORDERED: Albuterol HFA200 ACT/6.7 GM INH INH PRN (23:05)
[2024-07-06 23:33] VITALS: BP 138/78
[2024-07-06] MEDS ORDERED: Acetaminophen 325 MG TABLET PO PRN (23:50)
[2024-07-07] MEDS ORDERED: OxyCODONE HCL 5 MG TAB PO PRN (00:10)
--- NOTE | 2024-07-07 00:12 | NUR ---
ADMIT NOTE HANDOFF RECEIVED FROM AFTER SCHOOL CAREGIVER ERICKSON. PT ARRIVED TO FLOOR VIA [facility]. PT ORIENTED TO UNIT. CALL BUTTON WITHIN REACH. WOUNDS PHOTOGRAPHED AND DRESSINGS CHANGED. CALLED HOSPITALIST FOR PAIN RX AT PATIENT'S REQUEST. NEW ORDERS IN EMAR. BED ALARM IS ACTIVE.
--- NOTE | 2024-07-07 03:50 | NUR ---
SHIFT SUMMARY ADMITTED FOR FLUID OVERLOAD/CHF EXACERBATION. FULL CODE. PLAN IS TO DIURESE. HE ALSO HAS NECROTIC LOOKING WOUNDS ON BLE HEELS. A LACERATION ON HIS RIGHT LEG W/STITCHES THAT I RE-DRESSED UPON ADMIT TO THIS FLOOR. HE HAS AN EXCORIATED AND RED COCCYX AREA THAT I PUT BARRIER CREAM ON AND COVERED WITH NEW MEPILEX. THERE IS A PODIATRY CONSULT FOR DR. PARRISH. 1 LPM O2, RA @ BASELINE. HE IS ALREADY ON HH SERVICES @ HOME. HE LIVES WITH HIS SON WHO CARES FOR HIM. HE HAS BEEN UNABLE TO AMBULATE FOR OVER A MONTH NOW. BLE 3+ EDEMA. CARDIAC DIET. A&O X4.
[2024-07-07 04:34] VITALS: BP 115/60
[2024-07-07 05:00] LABS: BASOPHILS ABSOLUTE AUTO 0.03 K/mm3 (0.00-0.23); BASOPHILS PERCENT AUTO 0 % (0-2); EOSINOPHILS ABSOLUTE AUTO 0.13 K/mm3 (0.00-0.68); EOSINOPHILS PERCENT AUTO 2 % (0-6); Hematocrit 31.7 % (37.0-53.0); IMMATURE GRAN PERCENT AUTO 1 % (0-1); LYMPHOCYTES ABSOLUTE AUTO 1.02 K/mm3 (0.84-5.20); LYMPHOCYTES PERCENT AUTO 12 % (21-46); MONOCYTES ABSOLUTE AUTO 0.78 K/mm3 (0.16-1.47); MONOCYTES PERCENT AUTO 9 % (4-13); Mean Corpuscular HGB 28.7 pg (26.0-34.0); Mean Corpuscular HGB Conc 31.5 g/dL (31.5-36.5); Mean Corpuscular Volume 91 fL (80-100); Mean Platelet Volume 9.6 fL (9.1-12.4); NEUTROPHILS ABSOLUTE AUTO 6.61 K/mm3 (1.96-9.15); NEUTROPHILS PERCENT AUTO 76 % (41-73); Platelet Count 188 K/mm3 (150-400); RDW Coefficient Variation 17.8 % (11.7-14.2); RDW Standard Deviation 59.3 fL (35.1-46.3); Red Blood Cell Count 3.49 M/mm3 (4.30-5.90); White Blood Cell Count 8.67 K/mm3 (4.00-11.30)
[2024-07-07 05:22] LABS: Albumin, Blood 1.8 g/dL (3.4-5.0); Albumin/Globulin Ratio 0.4 (0.8-1.8); Bilirubin, Total 0.5 mg/dL (0.1-1.0); Bun/Creatinine Ratio 22.4 (12.0-20.0); Calcium, Blood 9.5 mg/dL (8.5-10.1); Creatinine, Blood 1.16 mg/dL (0.60-1.20); Globulin, Blood 4.9 g/dL (2.2-4.0); Potassium, Blood 3.5 mmol/L (3.5-5.5); Total Protein, Blood 6.7 g/dL (6.4-8.2)
[2024-07-07 07:33] VITALS: BP 109/69
[2024-07-07] MEDS ORDERED: Carvedilol 6.25 MG Tab PO SCH ×2 (08:00→09:00)
[2024-07-07] MEDS ORDERED: Carvedilol 25 MG Tab PO SCH ×3 (08:00→09:00)
[2024-07-07] MEDS ORDERED: AmLODIPine Besylate 5 MG Tab PO SCH ×2 (09:00)
[2024-07-07] MEDS ORDERED: Spironolactone 25 MG Tab PO SCH (09:00)
[2024-07-07] MEDS ORDERED: Lactobacil 2-S.Thermo-Bifido 1 1 Cap PO SCH (09:00)
[2024-07-07] MEDS ORDERED: Sennosides 8.6 MG Tab PO SCH (09:00)
[2024-07-07] MEDS ORDERED: Furosemide 10 MG/ML 4ML Vial IV SCH ×2 (09:00→16:00)
[2024-07-07] MEDS ORDERED: Pregabalin 50 MG Capsule PO SCH ×2 (09:00)
[2024-07-07] MEDS ORDERED: Arginine/Glutamine/Calcium Hmb 1 Packet PO SCH (13:35)
[2024-07-07 15:28] VITALS: BP 135/107
[2024-07-07 16:39] LABS: Percent Saturation 12.1 % (20.0-50.0)
[2024-07-07] MEDS ORDERED: CefTRIAXone Sodium 1,000 MG in NS 100 ML IV SCH (18:00)
[2024-07-07] MEDS ORDERED: Vancomycin HCL 1,750 MG in NS 500 ML IV ONE (18:05)
--- NOTE | 2024-07-07 18:34 | NUR ---
WOUND CARE- DR PARRSIH CAME IN, SENAIT HEELS DRESSINGS CHANGED AND RIGHT CALF DRESSING CHANGED. COCCYX WOUND PICTURES IN CHART, VERY EXCORIATED SKIN, POSSIBLE STAGE 2 ULCERATION ON BOTH SIDES OF INNER COCCYX AND POSTEERIOR OF SCROTUMN, PERIWIK IN PLACE, SATS 87% ON RA, 92% ON 2L O2, PATIENT VERY SHAKEY, ATE ALL MEALS, MAKES NEEDS KNOWN, CALL LIGHT WITH IN REACH WILL RELAY TO PM TALITA
[2024-07-07] MEDS ORDERED: NS 250 ML IV PRN (18:55)
[2024-07-07 19:43] VITALS: BP 121/65
--- NOTE | 2024-07-08 03:52 | NUR ---
SHIFT SUMMARY ADMITTED FOR CHF EXACERBATION. FULL CODE. WE ARE DIURESING HIM AND ANTIB RX ARE PRESCRIBED. PODIATRY CONSULT FOR BLE NECROTIC HEEL ULCERS. LACERATION WITH STITCHES ON RIGHT LEG. EXCORIATED COCCYX AREA, BARRIER CREAM AND MEPILEX APPLIED. DAILY DRESSING CHANGE ORDERS ARE IN THE CHART. PUREWICK IN PLACE. HE IS A&O X3, BUT SLOW TO RESPOND. WE HAVE BEEN Q2 TURNING HIM. CARDIAC DIET. HE IS ON BEDREST DUE TO WEAKNESS AND DECONDITIONING. 1 LPM O2, RA @ BASELINE. HE WAS BEING SEEN BY HH @ HOME PREVIOUS TO ADMIT. THE SHAKING I NOTED UPON HIS ADMIT HAS DECREASED ALMOST COMPLETELY THIS SHIFT.
[2024-07-08 05:18] LABS: BASOPHILS ABSOLUTE AUTO 0.03 K/mm3 (0.00-0.23); BASOPHILS PERCENT AUTO 0 % (0-2); EOSINOPHILS ABSOLUTE AUTO 0.09 K/mm3 (0.00-0.68); EOSINOPHILS PERCENT AUTO 1 % (0-6); Hematocrit 30.7 % (37.0-53.0); Hemoglobin 9.7 g/dL (13.5-17.5); IMMATURE GRAN ABSOLUTE AUTO 0.18 K/mm3 (0.00-0.10); IMMATURE GRAN PERCENT AUTO 2 % (0-1); LYMPHOCYTES ABSOLUTE AUTO 0.97 K/mm3 (0.84-5.20); LYMPHOCYTES PERCENT AUTO 11 % (21-46); MONOCYTES ABSOLUTE AUTO 0.75 K/mm3 (0.16-1.47); MONOCYTES PERCENT AUTO 9 % (4-13); Mean Corpuscular HGB 28.9 pg (26.0-34.0); Mean Corpuscular HGB Conc 31.6 g/dL (31.5-36.5); Mean Corpuscular Volume 91 fL (80-100); Mean Platelet Volume 9.4 fL (9.1-12.4); NEUTROPHILS ABSOLUTE AUTO 6.62 K/mm3 (1.96-9.15); NEUTROPHILS PERCENT AUTO 77 % (41-73); Platelet Count 175 K/mm3 (150-400); RDW Coefficient Variation 17.8 % (11.7-14.2); RDW Standard Deviation 59.4 fL (35.1-46.3); Red Blood Cell Count 3.36 M/mm3 (4.30-5.90); White Blood Cell Count 8.64 K/mm3 (4.00-11.30)
[2024-07-08 05:47] LABS: Albumin, Blood 1.6 g/dL (3.4-5.0); Albumin/Globulin Ratio 0.3 (0.8-1.8); Bilirubin, Total 0.7 mg/dL (0.1-1.0); Bun/Creatinine Ratio 21.4 (12.0-20.0); Calcium, Blood 9.3 mg/dL (8.5-10.1); Creatinine, Blood 1.26 mg/dL (0.60-1.20); Potassium, Blood 3.5 mmol/L (3.5-5.5); Total Protein, Blood 6.6 g/dL (6.4-8.2)
[2024-07-08 06:20] VITALS: BP 114/54
[2024-07-08 07:57] VITALS: BP 128/63
[2024-07-08] MEDS ORDERED: Ferrous Sulfate 325 MG Tab PO SCH (08:30)
[2024-07-08] MEDS ORDERED: Furosemide 10 MG/ML 4ML Vial IV SCH (09:00)
[2024-07-08] MEDS ORDERED: Enoxaparin 40 MG/0.4 ML SYR SC SCH (12:00)
[2024-07-08] MEDS ORDERED: MetroNIDAZOLE 500MG/NS 100 ml 100 ML IV SCH (16:00)
[2024-07-08 16:01] VITALS: BP 103/60
[2024-07-08] MEDS ORDERED: CefTRIAXone Sodium 2,000 MG in NS 100 ML IV SCH (18:00)
[2024-07-08 19:05] VITALS: BP 118/65
[2024-07-08] MEDS ORDERED: Vancomycin HCL 1,500 MG in NS 250 ML IV SCH (20:00)
[2024-07-08 23:31] VITALS: BP 110/60
[2024-07-09] VITALS (20 sets, daily range): BP systolic 101–157; BP diastolic 56–78
--- NOTE | 2024-07-09 06:37 | NUR ---
SHIFT SUMMARY PT A&Ox3-4 AND PLEASANT. PT VERY PAINFUL EVEN WITH SLIGHT MOVEMENT. MEDICATED PER EMAR WITH GOOD EFFECT. PT GIVEN IV ABX PER ORDER. MEPALEX ON COCCYX CHANGED AND BARRIER CREAM APPLIED TO EXCORIATED SCROTUM. PT ABLE TO TAKE NIGHT TIME MEDICATIONS WITH SMALL SPOONFULS OF THICKEND JUICE WITHOUT DIFFICULTY. DRESSINGS ON BILATERAL FEET CHANGED BY DR PARRISH ON DAY SHIFT. REMAIN C/D/I. PT ABLE TO SLEEP MOST OF THE NIGHT. REAMINS ON 2L OF OXYGEN. VSS. NO EVENTS ON TELE. BED IN LOWEST POSITION AND CALL LIGHT IN REACH.
[2024-07-09 07:45] LABS: BASOPHILS ABSOLUTE AUTO 0.05 K/mm3 (0.00-0.23); BASOPHILS PERCENT AUTO 1 % (0-2); EOSINOPHILS ABSOLUTE AUTO 0.16 K/mm3 (0.00-0.68); EOSINOPHILS PERCENT AUTO 2 % (0-6); Hematocrit 31.8 % (37.0-53.0); Hemoglobin 9.9 g/dL (13.5-17.5); IMMATURE GRAN ABSOLUTE AUTO 0.23 K/mm3 (0.00-0.10); IMMATURE GRAN PERCENT AUTO 3 % (0-1); LYMPHOCYTES ABSOLUTE AUTO 0.96 K/mm3 (0.84-5.20); LYMPHOCYTES PERCENT AUTO 12 % (21-46); MONOCYTES ABSOLUTE AUTO 0.68 K/mm3 (0.16-1.47); MONOCYTES PERCENT AUTO 8 % (4-13); Mean Corpuscular HGB 28.4 pg (26.0-34.0); Mean Corpuscular HGB Conc 31.1 g/dL (31.5-36.5); Mean Corpuscular Volume 91 fL (80-100); NEUTROPHILS ABSOLUTE AUTO 6.01 K/mm3 (1.96-9.15); NEUTROPHILS PERCENT AUTO 74 % (41-73); NRBC ABSOLUTE 0.02 K/mm3 (0.00-0.02); NRBC Auto 0.2 /100 WBC (0.0-0.2); RDW Coefficient Variation 17.6 % (11.7-14.2); RDW Standard Deviation 58.9 fL (35.1-46.3); Red Blood Cell Count 3.48 M/mm3 (4.30-5.90); White Blood Cell Count 8.09 K/mm3 (4.00-11.30)
[2024-07-09 07:47] LABS: Magnesium, Blood 1.8 mg/dL (1.6-2.4)
[2024-07-09 07:48] LABS: Albumin, Blood 1.5 g/dL (3.4-5.0); Anion Gap 10 mmol/L (3-11); Blood Urea Nitrogen 35 mg/dL (8-24); Bun/Creatinine Ratio 29.7 (12.0-20.0); CO2, Blood 31 mmol/L (21-32); Calcium, Blood 9.1 mg/dL (8.5-10.1); Chloride, Blood 100 mmol/L (98-108); Creatinine, Blood 1.18 mg/dL (0.60-1.20); Glomerular Filtration Rate 64 (60-); Glucose, Blood 92 mg/dL (70-99); Phosphorus, Blood 3.1 mg/dL (2.5-4.9); Potassium, Blood 3.9 mmol/L (3.5-5.5); Sodium, Blood 137 mmol/L (136-145)
[2024-07-09] MEDS ORDERED: Bupivacaine 0.5% HCl 5 MG/ML 30MLVIAL ONE (08:43)
[2024-07-09] MEDS ORDERED: Lidocaine HCl 1% 30 ML SDV ONE (08:43)
[2024-07-09] MEDS ORDERED: Lactated Ringer's 1,000 ML IV SCH (08:55)
[2024-07-09 08:56] LABS: Mean Platelet Volume 10.3 fL (9.1-12.4); Platelet Count 193 K/mm3 (150-400)
[2024-07-09] MEDS ORDERED: propofoL 100 ML IV ONE (08:58)
[2024-07-09] MEDS ORDERED: Lidocaine HCl 4% 5 ML SDA ONE (08:59)
[2024-07-09] MEDS ORDERED: Torsemide 20 MG TAB PO SCH (09:00)
[2024-07-09] MEDS ORDERED: Phenylephrine HCl 100 MCG/ML-NS 10MLSYR (1MG/10ML) ONE (09:46)
[2024-07-09] MEDS ORDERED: ePHEDrine Sulfate 50 MG/ML 1ML Injection ONE (09:46)
[2024-07-09] MEDS ORDERED: Vasopressin 20 UNITS/ML 1ML Vial ONE (09:57)
[2024-07-09] MEDS ORDERED: Ondansetron HCl 2 MG / ML 2ML Vial ONE (10:18)
[2024-07-09] MEDS ORDERED: Dexamethasone Sod Phos 10 MG/ML 1ML VIAL ONE (10:19)
[2024-07-09] MEDS ORDERED: Lidocaine HCl 2% 20 ML MDV ONE (10:25)
--- NOTE | 2024-07-09 10:45 | NUR ---
07/09/24 1045 Sweetie Magaña NOTED: MULTIPLE [id number] TO UPPER AND LOWER EXTREMITES, MULTIPLE ECCCYMOSIS TO OVERALL BODY, MULTIPLE SCABBED AREAS TO OVERALL BODY
--- NOTE | 2024-07-09 11:09 | NUR ---
GAVE REPORT TO GEE OF U 13
--- NOTE | 2024-07-09 12:28 | NUR ---
ARRIVAL TO PCU PT ARRIVES TO PCU AT 1151 FROM SURGERY. HE RESPONDS TO PAIN AND VERBAL STIMULI BUT UNABLE TO ANSWER QUESTIONS. HE IS ON TELE IN NSR 76 BP STABLE. HE IS ON 3L NC WITH CLEAR DIMINISHED LUNG SOUNDS. RR 12. CONTINUOUS SPO2>90%. CAP REFIL <3 ON ALL EXTRIMITIES. PT HAD LARGE FORMED BM, MEPELIX CHANGED ON COCCYX. HIPS FLOATED TO RELIEVE PRESSURE. LOWER EXTRIMITIES ALSO ELEVATED. ELBOW MEPILEX C/D/I. CARE CONTINUES
[2024-07-09 12:44] LABS: Stool Occult Blood Guaiac 1 Neg (Neg)
--- NOTE | 2024-07-09 13:04 | NUR ---
DAUGHTER-MILE HEALY
[2024-07-09 14:13] LABS: CORONAVIRUS COVID-19 AG Negative (NEGATIVE); INFLUENZA A AG Negative (NEGATIVE); INFLUENZA B AG Negative (NEGATIVE)
--- NOTE | 2024-07-09 14:41 | NUR ---
UPDATE: PT MORE ALERT, ABLE TO ANSWER QUESTIONS APPROPRIATLEY AND SWALLOW LIQUIDS.
[2024-07-09 16:14] LABS: Free Thyroxine 1.09 ng/dL (0.70-1.60)
[2024-07-09 16:15] LABS: Thyroid Stimulating Hormone 0.446 uIU/mL (0.360-4.800)
--- NOTE | 2024-07-09 16:53 | NUR ---
PT ABLE TO TOLERATE MEDS 1 AT A TIME CRUSHED IN APPLESAUCE
[2024-07-09 20:02] LABS: Vancomycin, Trough 16.4 ug/mL (5.0-10.0)
[2024-07-10] VITALS (7 sets, daily range): BP systolic 110–133; BP diastolic 60–74
--- NOTE | 2024-07-10 00:17 | NUR ---
ASSUMPTION OF CARE/PATIENT UPDATE THIS RN ASSUMED CARE OF PATIENT AT 1900. PT ANSWERING ALL QUESTIONS APPROPRIATELY BUT OCCASIONALLY GETTING FORGETFUL OF CURRENT SITUATION. PT REPORTED SEEING A "FIRE" IN THE ROOM BUT WAS CALM. FAMILY NOTED MENTATION CHANGES RECENTLY. THIS RN NOTED RT SIDED DEFICITS DURING ASSESSMENT. NOT PREVIOUSLY REPORTED IN OTHER RN'S ASSESSMENTS, HOWEVER, PT WAS SOMNOLENT PREVIOUSLY. PT STATES HE STOPPED BEING ABLE TO USE HIS RT ARM ABOUT 2 WEEKS AGO. NO NOTED CVA HX. NOTED LEFT CAROTID ARTERY STENOSIS IN HX. CT HEAD PREVIOUS DONE D/T SOMNOLENCE. PROVIDER GARDENIA CALLED, NO ORDERS AT THIS TIME. PER PROVIDER, THIS RN WILL REPORT TO DAY TEAM TO SEE IF THEY WANT TO DO A MRI. PT ON 2-3L VIA NC TO MAINTAIN SPO2. SR ON MONITOR. RR 10-12. PT DENIED WANTING CPAP BUT REPORTS THAT HE IS SUPPOSED TO HAVE ONE. OTHER VSS. REPOSITIONING Q2HRS. BED IN LOWEST POSITION AND CALL LIGHT WITHIN REACH.
--- NOTE | 2024-07-10 05:13 | NUR ---
SHIFT SUMMARY PT NOTED TO BE FORGETFUL/CONFUSED AT TIMES. MOSTLY HAS BEEN ORIENTED FULLY AND ANSWERS QUESTIONS APPRORIATELY. PT MORE AWAKE AND HAS BEGUN TO MOVE LEGS MORE. CONTINUES TO BE WEAKER ON THE RT SIDE COMPARED TO THE LEFT. PT ON 2-3L VIA NC TO MAINTAIN SPO2. REFUSED SCD'S. MALE WICKING SYSTEM IN PLACE DRAINING JEREMY COLORED URINE. PT TOLERATED PILLS CRUSHED IN APPLESAUCE. OTHERWISE HAS BEEN NPO. MEPILEX IN PLACE PER ORDER. DRESSINGS ON BILAT HEELS/FEET C/D/I. REPOSITIONING Q2HRS. BED IN LOWEST POSITION AND CALL LIGHT WITHIN REACH. THIS RN WILL REPORT TO ONCOMING DAYSHIFT RN.
--- NOTE | 2024-07-10 16:14 | NUR ---
SHIFT SUMMARY POD 1 I&D BILATERAL HEELS. DRESSINGS TO HEELS REMAINS CDI. DRESSING TO R ZUNIGA CHANGED. PT TOELRATED WELL. WEAKNESS REMAINS TO R ARM DAUGHTER REPORTS THIS HAS BEEN SINCE PATIENT LAST DISCHARGED THE HOSPITAL. PT CONFUSED DURING SHIFT BUT IS PLEASANT AND COOPERATIVE. ATTEMPTS TO HELP WITH REPOSITIONING. FREQUENT REPOSITIONING USING PILLOWS TO HELP WITH PRESSURE SORE ON COCCYX, MEPILEX REMAINS CLEAN. PT TOLERATING DIET WELL DURING SHIFT. NO COUGHING OR CHOKING HEARD.
[2024-07-11 04:00] VITALS: BP 118/58
[2024-07-11 04:55] LABS: Hematocrit 27.3 % (37.0-53.0); Hemoglobin 8.5 g/dL (13.5-17.5); Mean Corpuscular HGB 28.8 pg (26.0-34.0); Mean Corpuscular HGB Conc 31.1 g/dL (31.5-36.5); Mean Corpuscular Volume 93 fL (80-100); Mean Platelet Volume 9.9 fL (9.1-12.4); Platelet Count 201 K/mm3 (150-400); RDW Coefficient Variation 17.5 % (11.7-14.2); RDW Standard Deviation 59.5 fL (35.1-46.3); Red Blood Cell Count 2.95 M/mm3 (4.30-5.90); White Blood Cell Count 8.13 K/mm3 (4.00-11.30)
[2024-07-11 05:33] LABS: Bun/Creatinine Ratio 28.8 (12.0-20.0); Calcium, Blood 9.5 mg/dL (8.5-10.1); Creatinine, Blood 1.11 mg/dL (0.60-1.20); Potassium, Blood 3.5 mmol/L (3.5-5.5)
--- NOTE | 2024-07-11 06:12 | NUR ---
SHIFT SUMMARY PT IS SOMMULENT BUT EASILY AWAKENS TO VERBAL STIMULI &OX4, ABLE TO MAKE NEEDS KNOWN, OBEYS COMMANDS,BLE WEAK BUT PT IS ABLE TO MOVE, RIGHT ARM IS PAINFUL TO MOVE, PT LEFT ARM IS WEAK BUT PT IS ABLE TO MOVE, BED REST QT2. CONTINUOUS SPO2, SPO2 GREATER THAN 90% ON 2L NC FOR APNIC EPISODES WHILE SLEEPING THAT PT DESATES DOWN TO THE 80 S, NO SIGNS OF RESPIRATORY DISTRESS OBSERVED BY THIS RN. CONTINUOUS TELE MONITORING, PT SINUS RHYTHM 80 S, BP STABLE WITH MAP GREATER THAN 65, PT DENIES CHEST P/P T/O THIS SHIFT, PULSES PRESENT T/O, BLE WITH THE RIGHT GREATER THAN THE LEFT. BOWEL TONES PRESENT IN ALL 4Q. PT INCONTINET AT THIS TIME, PT REPORTS THAT BASELINE HE IS ABLE TO TELL WHEN HE NEEDS TO VOID. PT HAS BILATERAL HEEL WOUNDS/ S/P I&D 07/09/ DRESSINGS ARE C/D/I AND ARE SCHEDULED TO BE CHANGED 07/11, PT HAS WOUND TO COCCYX THAT HAS A MEPILEX, PT SCROTUM IS EXORIATED, BURSING T/O BUE, WOUND TO RIGHT ZUNIGA/DRESSING C/D/I, SEE PHOTOS IN CHART. PT IS REPORTING PAIN TO HIS RIGHT ARM THAT IS PAINFUL WITH MOVEMENT/ RIGHT ARM IS SWOLLEN COMPARED TO LEFT. DAUGHTER AT BEDSIDE AT START OF THIS SHIFT, DAUGHTER REPORTS THAT PT DOES BECOME CONFUSED FOR A FEW DAYS AFTER SEDATION BUT BASLINE IS A&O X4. BED LOWEST POSITION, CALL LIGHT IN REACH, AWAITING TO GIVE REPORT TO ONCOMING RN.
--- NOTE | 2024-07-11 07:15 | NUR ---
ASSUMPTION OF CARE: THIS RN TO ASSUME CARE OF PT FROM GENE Salazar RN. PT RESTING IN BED WITH NO COMPLAINTS AT THIS TIME. PT NOT IN ANY DISTRESS AT THIS TIME. REMAINS ON TELE. VSS. CALL LIGHT IN REACH. BED IN LOW POSITION.
[2024-07-11 08:35] VITALS: BP 120/66
[2024-07-11 15:17] VITALS: BP 118/57
[2024-07-11] MEDS ORDERED: Ampicillin Sod/Sulbactam Sod 3 GM in NS 100 ML IV SCH (16:00)
[2024-07-11 18:04] LABS: Base Excess Venous 19.3 mmol/L; Bicarbonate Venous 41.2 mmol/L (24.0-30.0); PCO2 Venous 54.6 mmHg (38-42)
--- NOTE | 2024-07-11 18:29 | NUR ---
SHIFT SUMMARY: NEURO: PT ALERT AND ORIENTED AT THE BEGINING OF SHIFT. PT IS NOW DROUSY AND DIFFICULT TO KEEP AWAKE. PROVIDER AWARE. VBG DRAWN. BIPAP ORDERED PER PROVIDER ORDERS. CARDIAC: NO ACUTE CHANGES RESP: NO ACUTE CHANGES GI/: PURE WICK IN PLACE DUE TO INCONTINANCE AND WOUNDS TO COCCYX AND SCROTUM. PT HAS HAD A MODERATE AMOUNT OF URINARY OUTPUT. PT HAS NOT HAD A BOWEL MOVEMENT TODAY. WOUNDS: WOUND DRESSING FROM SURGERY WERE REMOVED AND CLEANED WITH DR VALENZUELA. WOUNDS WERE REDRESSED PER WOUND CARE ORDERS. NO OTHER SIGNIFICANT EVENTS HAPPENED DURING THIS SHIFT. WILL CONTINUE TO CARE FOR PT TILL END OF SHIFT.
[2024-07-11 19:36] LABS: Vancomycin, Trough 27.3 ug/mL (5.0-10.0)
[2024-07-11 20:13] VITALS: BP 125/62
[2024-07-11] MEDS ORDERED: Albuterol 2.5 MG/3 ML VIAL INH PRN (20:40)
--- NOTE | 2024-07-11 21:04 | NUR ---
ASSUMPTION OF CARE ASSUMED PT'S CARE AT 1900.BEDSIDE REPORT COMPLETED.PT'S DAUGHTER AT BEDSIDE,ALL QUESTIONS ANSWERED.PT ON 2L OXYGEN VIA NASAL CANNULA,OXYGEN SATURATION 97%.PLAN OF CARE REVIEWED,PT WIDE AWAKE AND ALERT.DRESSINGS TO WOUNDS CDI.PT REQUESTED TOMATO SOUP,DAUGHTER FEED PT.PT DENIED FURTHER NEEDS.JACKIE CONTINUE TO MONITOR.
[2024-07-12] VITALS (8 sets, daily range): BP systolic 100–129; BP diastolic 64–107
[2024-07-12 05:45] LABS: Vancomycin, Random 23.2 ug/mL
[2024-07-12] MEDS ORDERED: NS 0 ML IV ONE (05:45)
--- NOTE | 2024-07-12 06:09 | NUR ---
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
[2024-07-12 07:10] LABS: Bun/Creatinine Ratio 31.5 (12.0-20.0); Creatinine, Blood 1.08 mg/dL (0.60-1.20); Hematocrit 31.5 % (37.0-53.0); Hemoglobin 9.6 g/dL (13.5-17.5); Mean Corpuscular HGB 28.5 pg (26.0-34.0); Mean Corpuscular HGB Conc 30.5 g/dL (31.5-36.5); Mean Corpuscular Volume 94 fL (80-100); Mean Platelet Volume 9.8 fL (9.1-12.4); NRBC ABSOLUTE 0.02 K/mm3 (0.00-0.02); NRBC Auto 0.2 /100 WBC (0.0-0.2); Platelet Count 253 K/mm3 (150-400); Potassium, Blood 3.6 mmol/L (3.5-5.5); RDW Coefficient Variation 17.6 % (11.7-14.2); RDW Standard Deviation 60.4 fL (35.1-46.3); Red Blood Cell Count 3.37 M/mm3 (4.30-5.90)
[2024-07-12] MEDS ORDERED: Pregabalin 50 MG Capsule PO SCH (18:00)
--- NOTE | 2024-07-12 19:11 | NUR ---
SHIFT SUMMARY: NEURO: PT A&0X4. FOLLOWS COMMANDS AND MAKES NEEDS KNOWN TO STAFF. PT APPEARS TO BE A LITTLR WITHDRAWN CLOSE TO SHIFT CHANGE AND WAS PLACED ON BIPAP TO SEE IF IT HELPED. RESP: NO ACUTE CHANGES GI/: PT REMAINS ON PUREWICK. HAS NO HAD A BOWEL MOVEMENT TODAY. NO OTHER SIGNIFIANT EVENTS HAVE HAPPENED DURING THIS SHIFT. REPORT GIVEN TO PHUONG SANON TO ASSUME CARE OF PT.
--- NOTE | 2024-07-13 02:04 | NUR ---
ASSUMPTION OF CARE ASSUMED PT'S CARE AT 1900,BEDSIDE REPORT COMPLETED WITH PREVIOUS NURSE.PT WIDE AWAKE AND ALERT WATCHING TV.PT ANSWERING QUESTIONS APPROPRIATELY.ON 0.5L OXYGEN VIA NASAL CANNULA.PLAN OF CARE REVIEWED.PT DENIES PAIN,DENIES NEEDS.CALL LIGHT AND PT'S ITEMS WITHIN REACH.WILL CONTINUE TO MONITOR.
[2024-07-13 04:12] VITALS: BP 136/83
[2024-07-13] MEDS ORDERED: Vancomycin HCL 1,000 MG in NS 250 ML IV SCH (06:00)
--- NOTE | 2024-07-13 06:59 | NUR ---
PT SLEPT MOST OF THE NIGHT,WITH BIPAP ON SINCE MIDNIGHT.PT WOKE UP THIS MORNING CONFUSED,PULLING OFF THE TELEMETRY WIRES .PT ALERT AND ORIENTED,STATES THAT HE DOES NOT WANT THE TELEMETRY ON.PT EDUCATED ON THE NEED TO KEEP THE TELEMETRY PATCHES AND WIRES ON.PT SWITCHED TO 1L OXYGEN VIA NASAL CANNULA BUT FELL ASLEEP RIGHT AWAY.HAD MOMENTS OF SLEEP APNEA,HIS OXYGEN SATURATION WOULD DROP DOWN TO 54% THEN WOULD CAME RIGHT BACK UP TO 92%.PT SWITCHED BACK TO THE BIPAP.PT SLEEPING.CALL LIGHT AND PTS ITEMS WITHIN REACH.REPORT GIVEN TO DAYSHIFT NURSE FOR CONTINUITY OF CARE.
[2024-07-13 07:33] VITALS: BP 128/64
[2024-07-13 10:07] LABS: Base Excess Venous 16.8 mmol/L; Bicarbonate Venous 39.8 mmol/L (24.0-30.0); PCO2 Venous 33.9 mmHg (38-42); PO2 Venous 153 mmHg (38-42)
[2024-07-13 10:09] LABS: pH Blood Venous 7.65 (7.34-7.37)
[2024-07-13 10:38] LABS: Albumin, Blood 1.5 g/dL (3.4-5.0); Albumin/Globulin Ratio 0.2 (0.8-1.8); Bilirubin, Total 0.4 mg/dL (0.1-1.0); Bun/Creatinine Ratio 29.5 (12.0-20.0); Calcium, Blood 9.8 mg/dL (8.5-10.1); Creatinine, Blood 1.05 mg/dL (0.60-1.20); Globulin, Blood 6.6 g/dL (2.2-4.0); Potassium, Blood 3.4 mmol/L (3.5-5.5); Total Protein, Blood 8.1 g/dL (6.4-8.2)
[2024-07-13 12:10] VITALS: BP 136/74
[2024-07-13 15:40] VITALS: BP 134/55
--- NOTE | 2024-07-13 18:14 | NUR ---
SHIFT SUMMARY; ASSUMED CARE AT 0700. BIPAP IN PLACE SLEEPING MOST OF MORNING, DIFFICULT TO ARROUSE, AWOKE WITH NOXIOUS STIMULI THEN QUICKLY FALLS BACK ASLEEP. EVALUATED BY DR. CARTER. HELD PO MEDS UNTIL COULD STAY AWAKE TO SAFLY SWALLOW, GAVE WHOLE WITH APPLESAUCE. VSS, WOUNDS CLEANED AND DRESSINGS CHANGED PER ORDERS. BED BATH AND LINEN CHANGE, Q2 REPOSITIONING, PURWICK IN PLACE DRAINING YELLOW URINE. MORE AWAKE IN AFTERNOON. ABLE TO EAT WITH FEEDING ASSISTANCE. NO ACUTE CHANGES, WILL CONTINUE TO MONITOR AND TREAT UNTIL REPORT GIVEN TO ONCOMING NOC SHIFT RN.
[2024-07-13 20:14] VITALS: BP 121/61
[2024-07-13 23:04] VITALS: BP 132/66
[2024-07-14 04:37] VITALS: BP 113/70
--- NOTE | 2024-07-14 05:39 | NUR ---
SHIFT SUMMARY PATIENT ALERT, ORIENTED x2-3. SOMNULENT BUT WAKES TO VERBAL STIMULI. ABLE TO MAKE NEEDS KNOWN TO STAFF. BP STABLE. ON TELE, SR DURING THE NIGHT. PATIENT ON 2L NC WHILE AWAKE, ON CPAP WHILE SLEEPING. DESATS WHILE SLEEPING. SPO2 LOW TO MID 90s. PURWICK IN PLACE TO SUCTION, ADEQUATE OUTPUT DURING THE NIGHT. NO OTHER CHANGES DURING THE NIGHT, WILL REPORT TO DAY SHIFT RN.
[2024-07-14 07:29] VITALS: BP 117/74
[2024-07-14 08:39] LABS: Base Excess Venous 14.5 mmol/L; Bicarbonate Venous 37.7 mmol/L (24.0-30.0); PCO2 Venous 33.4 mmHg (38-42); pH Blood Venous 7.64 (7.34-7.37)
[2024-07-14 12:03] VITALS: BP 111/62
[2024-07-14] MEDS ORDERED: ACET325 PO (12:31)
[2024-07-14] MEDS ORDERED: UNASYN 3 GM VIAL3 G1 IV (12:32)
[2024-07-14] MEDS ORDERED: ALBU90OI INH (12:32)
[2024-07-14] MEDS ORDERED: VISBIOME 112.51 EACH PO (12:33)
[2024-07-14] MEDS ORDERED: FERSU300 PO (12:33)
== END 2024-07-14 15:15 | DRG 264 ==
LOC: ER 17:30 → MEDS 17:31 → ERHOLD 17:31 → MEDS 22:47 → PCU 07-09 10:51
PROVIDERS: Family Medicine; Internal Medicine; Registered Nurse; Student in an Organized Health Care Education/Training Program; ADMIT Student in an Organized Health Care Education/Training Program
PROC: 0HQ1XZZ Repair Face Skin, External Approach (ICD-10-PCS; 2024-07-06)
PROC: 0JBQ0ZZ Excision of Right Foot Subcutaneous Tissue and Fascia, Open Approach (ICD-10-PCS; 2024-07-09)
PROC: 0JBR0ZZ Excision of Left Foot Subcutaneous Tissue and Fascia, Open Approach (ICD-10-PCS; 2024-07-09)
PROC: 5A09357 Assistance with Respiratory Ventilation, Less than 24 Consecutive Hours, Continuous Positive Airway Pressure (ICD-10-PCS; principal; 2024-07-11)
DX: I96 Gangrene, not elsewhere classified (principal); A41.9 Sepsis, unspecified organism; L89.623 Pressure ulcer of left heel, stage 3; L89.613 Pressure ulcer of right heel, stage 3; I50.33 Acute on chronic diastolic (congestive) heart failure; J96.01 Acute respiratory failure with hypoxia; J96.02 Acute respiratory failure with hypercapnia; I13.0 Hypertensive heart and chronic kidney disease with heart failure and stage 1 through stage 4 chronic kidney disease, or unspecified chronic kidney disease; E87.1 Hypo-osmolality and hyponatremia; J44.0 Chronic obstructive pulmonary disease with (acute) lower respiratory infection; L97.422 Non-pressure chronic ulcer of left heel and midfoot with fat layer exposed; L97.412 Non-pressure chronic ulcer of right heel and midfoot with fat layer exposed; I25.10 Atherosclerotic heart disease of native coronary artery without angina pectoris; Z95.1 Presence of aortocoronary bypass graft; E78.5 Hyperlipidemia, unspecified; L89.152 Pressure ulcer of sacral region, stage 2; D50.9 Iron deficiency anemia, unspecified; S81.811A Laceration without foreign body, right lower leg, initial encounter; I65.22 Occlusion and stenosis of left carotid artery; G47.33 Obstructive sleep apnea (adult) (pediatric); N18.2 Chronic kidney disease, stage 2 (mild); M10.9 Gout, unspecified; Z98.1 Arthrodesis status; Z98.890 Other specified postprocedural states; Z79.899 Other long term (current) drug therapy; Z88.8 Allergy status to other drugs, medicaments and biological substances; E11.621 Type 2 diabetes mellitus with foot ulcer
CPT/HCPCS: 36415; 70450; 71045; 73620; 80048; 80053; 80069; 80202; 81001; 82270; 82728; 82803; 83540; 83550; 83735; 83880; 84145; 84439; 84443; 84484; 85025; 85027; 85049; 86140; 87040; 87071; 87075; 87076; 87077; 87185; 87186; 87205; 87428-QW; 92526; 92610; 93005; 93010; 93308; 93321; 94640; 94660; 94664; 94760; 94762; 96374; 99285-25; A9270; G0378; J0295; J0696; J1100; J1650; J1940; J2003; J2371; J2405; J2704; J3370; J7040; J7050; J7120

== ENCOUNTER 2024-07-28 14:52 | Inpatient (IN) | payer OTHER ==
[~2024-07-28] VITALS: Ht 172.7 cm; Wt 99.8 kg
[~2024-07-28 14:52] MED LIST changes: +ACET325 PO; +ALBU90OI INH; +CARVEDILOL25 M9 PO; +FERSU300 PO; +PREGABALIN100 MG PO; +Prednisone10 MG; +TORSE20 PO; +UNASYN 3 GM VIAL3 G1 IV
[2024-07-28 15:43] LABS: Source, Urine Straight Cath
[2024-07-28 15:48] LABS: BASOPHILS ABSOLUTE AUTO 0.06 K/mm3 (0.00-0.23); BASOPHILS PERCENT AUTO 1 % (0-2); EOSINOPHILS ABSOLUTE AUTO 0.05 K/mm3 (0.00-0.68); EOSINOPHILS PERCENT AUTO 1 % (0-6); Hematocrit 33.2 % (37.0-53.0); Hemoglobin 10.4 g/dL (13.5-17.5); IMMATURE GRAN ABSOLUTE AUTO 0.09 K/mm3 (0.00-0.10); IMMATURE GRAN PERCENT AUTO 1 % (0-1); LYMPHOCYTES PERCENT AUTO 15 % (21-46); MONOCYTES ABSOLUTE AUTO 0.93 K/mm3 (0.16-1.47); MONOCYTES PERCENT AUTO 11 % (4-13); Mean Corpuscular HGB 29.7 pg (26.0-34.0); Mean Corpuscular HGB Conc 31.3 g/dL (31.5-36.5); Mean Corpuscular Volume 95 fL (80-100); Mean Platelet Volume 9.1 fL (9.1-12.4); NEUTROPHILS ABSOLUTE AUTO 6.32 K/mm3 (1.96-9.15); NEUTROPHILS PERCENT AUTO 72 % (41-73); NRBC ABSOLUTE 0.04 K/mm3 (0.00-0.02); NRBC Auto 0.5 /100 WBC (0.0-0.2); Platelet Count 308 K/mm3 (150-400); RDW Coefficient Variation 18.6 % (11.7-14.2); RDW Standard Deviation 64.8 fL (35.1-46.3); White Blood Cell Count 8.75 K/mm3 (4.00-11.30)
[2024-07-28 15:50] LABS: Appearance, Urine Clear (Clear); Bilirubin, Urine Neg (Neg); Blood, Urine Neg (Neg); Color, Urine Yellow (P-Yellow); Glucose Qualitative, Urine Neg (Neg); Ketones, Urine Neg (Neg); Leukocyte Esterase, Urine Neg (Neg); Nitrite, Urine Neg (Neg); Protein, Urine Neg (Neg); Urobilinogen, Urine NORM (Normal); pH, Urine 6.5 (5.0-8.0)
[2024-07-28 16:19] LABS: Albumin, Blood 1.6 g/dL (3.4-5.0); Albumin/Globulin Ratio 0.2 (0.8-1.8); Bilirubin, Total 0.4 mg/dL (0.1-1.0); Bun/Creatinine Ratio 22.6 (12.0-20.0); Calcium, Blood 9.9 mg/dL (8.5-10.1); Creatinine, Blood 1.46 mg/dL (0.60-1.20); Potassium, Blood 3.8 mmol/L (3.5-5.5); Total Protein, Blood 8.6 g/dL (6.4-8.2)
[2024-07-28 19:04] LABS: International Normalized Ratio 1.09; Prothrombin Time Results 11.6 Sec (9.7-11.5)
[2024-07-28 19:07] LABS: Base Excess Venous 8.5 mmol/L; Bicarbonate Venous 31.7 mmol/L (24.0-30.0); pH Blood Venous 7.52 (7.34-7.37)
[2024-07-28] MEDS ORDERED: ALBU8HFA2 INH (21:29)
[2024-07-28] MEDS ORDERED: Acetaminophen 325 MG TABLET PO PRN (22:30)
[2024-07-28] MEDS ORDERED: Ipratropium/Albuterol SulF 2.5-0.5MG/3 ML Amp INH PRN (22:35)
[2024-07-28] MEDS ORDERED: Albuterol HFA200 ACT/6.7 GM INH INH PRN (22:35)
[2024-07-28] MEDS ORDERED: FLU VACC TS2024-25(6MOS UP)/PF 45 MCG/0.5 ML SYRINGE IM ONE (22:35)
[2024-07-28] MEDS ORDERED: Ondansetron 4 MG TAB PO PRN (22:35)
[2024-07-28] MEDS ORDERED: LACT PO (23:20)
[2024-07-29 01:39] VITALS: BP 94/71
--- NOTE | 2024-07-29 03:13 | NUR ---
SHIFT SUMMARY ADMITTED TO ROOM 332 AT 1030. ALERT, ORIENTED TO NAME,DOD,YEAR, DISORIENTED TO PLACE ,TIME AND SITATION. PERRL. HAND MINING MANAGER WEAK BILAT, UE TREMORS NOTED, HALLUCINATING REPORTING IS SEEING BUGS ALLOVER, ARGUMENTATIVE THAT THERE ARE NO BUGS PRESENT. AVERY. WEAK. TOLERATES REPOSITIONING. HAS FOAM DRESSINGS ON BILATERAL HEELS AND RT ZUNIGA, FOAM DSGS EMBEDDED IN ALL WOUNDS MAKING REMOVAL VERY DIFFICULT AND PAINFUL FOR PT.SOAKED FEET IN WARM WATER TO AID REMOVAL AND THEN PT TOLERATED WELL. REDRESSED WITH NONADHERENT XEROFORM GAUZE FOR NOW. PHOTOS TO CHART. SKIN PALE,WAR,DRY, 02 ON AT 2L/M VIA NC AND SAT98% ,TELEMETRY APPLIED -NSR, CONTINUOUS OXIMETRY APPLIED. PASSED BEDSIDE SWALLOW TEST.
[2024-07-29 05:28] LABS: BASOPHILS ABSOLUTE AUTO 0.04 K/mm3 (0.00-0.23); BASOPHILS PERCENT AUTO 1 % (0-2); EOSINOPHILS ABSOLUTE AUTO 0.11 K/mm3 (0.00-0.68); EOSINOPHILS PERCENT AUTO 1 % (0-6); Hematocrit 31.6 % (37.0-53.0); IMMATURE GRAN ABSOLUTE AUTO 0.08 K/mm3 (0.00-0.10); IMMATURE GRAN PERCENT AUTO 1 % (0-1); LYMPHOCYTES PERCENT AUTO 15 % (21-46); MONOCYTES ABSOLUTE AUTO 0.94 K/mm3 (0.16-1.47); MONOCYTES PERCENT AUTO 11 % (4-13); Mean Corpuscular HGB 29.8 pg (26.0-34.0); Mean Corpuscular HGB Conc 31.6 g/dL (31.5-36.5); Mean Corpuscular Volume 94 fL (80-100); Mean Platelet Volume 9.2 fL (9.1-12.4); NEUTROPHILS ABSOLUTE AUTO 6.08 K/mm3 (1.96-9.15); NEUTROPHILS PERCENT AUTO 71 % (41-73); NRBC ABSOLUTE 0.02 K/mm3 (0.00-0.02); NRBC Auto 0.2 /100 WBC (0.0-0.2); Platelet Count 289 K/mm3 (150-400); RDW Coefficient Variation 18.6 % (11.7-14.2); RDW Standard Deviation 62.7 fL (35.1-46.3); Red Blood Cell Count 3.36 M/mm3 (4.30-5.90); White Blood Cell Count 8.55 K/mm3 (4.00-11.30)
[2024-07-29 05:57] LABS: Bun/Creatinine Ratio 21.7 (12.0-20.0); Calcium, Blood 9.5 mg/dL (8.5-10.1); Creatinine, Blood 1.29 mg/dL (0.60-1.20); Magnesium, Blood 1.9 mg/dL (1.6-2.4); Potassium, Blood 3.5 mmol/L (3.5-5.5)
[2024-07-29 05:58] LABS: Albumin, Blood 1.6 g/dL (3.4-5.0); Albumin/Globulin Ratio 0.2 (0.8-1.8); Bilirubin, Total 0.5 mg/dL (0.1-1.0); Globulin, Blood 6.4 g/dL (2.2-4.0)
[2024-07-29 07:39] VITALS: BP 119/63
[2024-07-29] MEDS ORDERED: Carvedilol 25 MG Tab PO SCH (08:00)
[2024-07-29] MEDS ORDERED: Ferrous Sulfate 325 MG Tab PO SCH (08:30)
[2024-07-29] MEDS ORDERED: Aspirin 81 MG Chew PO SCH (09:00)
[2024-07-29] MEDS ORDERED: Atorvastatin 10 MG Tab PO SCH (09:00)
[2024-07-29] MEDS ORDERED: Enoxaparin 40 MG/0.4 ML SYR SC SCH (09:00)
[2024-07-29] MEDS ORDERED: Spironolactone 25 MG Tab PO SCH (09:00)
[2024-07-29] MEDS ORDERED: Allopurinol 300 MG Tab PO SCH (09:00)
[2024-07-29] MEDS ORDERED: Torsemide 20 MG TAB PO SCH (09:00)
[2024-07-29] MEDS ORDERED: Lactated Ringer's 1,000 ML IV SCH (11:10)
[2024-07-29 11:24] VITALS: BP 109/62
[2024-07-29 15:32] VITALS: BP 109/60
[2024-07-29] MEDS ORDERED: Ampicillin Sod/Sulbactam Sod 1.5 GM in NS 100 ML IV SCH (16:00)
[2024-07-29] MEDS ORDERED: NS 250 ML IV PRN (17:00)
--- NOTE | 2024-07-29 18:34 | NUR ---
SHIFT SUMMARY PT A&O TO SELF AND YEAR. PT ADMITTED DUE TO AMS. PT MRI COMPLETED TODAY. PT INC ON BM AND URINE, ATTENDS CHANGED PRN. PT THIS AM WAS COUGHING POST MED ADMINISTRATION, DR. CORREA PUT IN ORDERS FOR PT TO BE NPO. PT HAS LR RUNNING AT 125ML/HR. DR. OSORIO REPORTED TO PUT IN WOUND CARE ORDERS. WOUND CARE COMPLETE. CLEANSED WITH WOUND CARE SPRAY AND 4X4. GAUZE AND PAT DRY, AND APPLIED BARRIER CREAM AND COVERED WITH SACRAL MEPILEX ON COCCYX. ON R ZUNIGA CLEANED WITH WOUND CARE SPRAY AND 4X4 GAUZE, PAT DRY AND APPLIED NON ADHERANT DRESSING, ABD PAD AND WRAPPED WITH KERLIX AND TENISHA WRAP. ON BILATERAL HEELS CLEANED WITH WOUND CARE SPRAY AND 4X4 GAUZE AND PAT DRY, APPLIED CALCIUM ALGINATE ROPE WITH ADHESIVE BORDER HEEL ULCER DRESSING. PT HAS CONT. PULSE OX MONITORING. SPO2 IS 93% ON VSS. PT ON TELE. PT BED IN LOWEST POSITION. CALL LIGHT IN REACH.
[2024-07-29 20:29] VITALS: BP 123/56
[2024-07-29 20:42] VITALS: BP 132/56
[2024-07-29] MEDS ORDERED: Pregabalin 50 MG Capsule PO SCH (21:00)
[2024-07-30] VITALS (7 sets, daily range): BP systolic 108–130; BP diastolic 59–78
[2024-07-30 05:46] LABS: BASOPHILS ABSOLUTE AUTO 0.04 K/mm3 (0.00-0.23); BASOPHILS PERCENT AUTO 1 % (0-2); EOSINOPHILS ABSOLUTE AUTO 0.02 K/mm3 (0.00-0.68); EOSINOPHILS PERCENT AUTO 0 % (0-6); Hematocrit 30.1 % (37.0-53.0); Hemoglobin 9.3 g/dL (13.5-17.5); IMMATURE GRAN ABSOLUTE AUTO 0.06 K/mm3 (0.00-0.10); IMMATURE GRAN PERCENT AUTO 1 % (0-1); LYMPHOCYTES ABSOLUTE AUTO 1.36 K/mm3 (0.84-5.20); LYMPHOCYTES PERCENT AUTO 21 % (21-46); MONOCYTES ABSOLUTE AUTO 1.06 K/mm3 (0.16-1.47); MONOCYTES PERCENT AUTO 16 % (4-13); Mean Corpuscular HGB 29.4 pg (26.0-34.0); Mean Corpuscular HGB Conc 30.9 g/dL (31.5-36.5); Mean Corpuscular Volume 95 fL (80-100); Mean Platelet Volume 9.5 fL (9.1-12.4); NEUTROPHILS ABSOLUTE AUTO 3.92 K/mm3 (1.96-9.15); NEUTROPHILS PERCENT AUTO 61 % (41-73); Platelet Count 261 K/mm3 (150-400); RDW Coefficient Variation 18.6 % (11.7-14.2); Red Blood Cell Count 3.16 M/mm3 (4.30-5.90); White Blood Cell Count 6.46 K/mm3 (4.00-11.30)
[2024-07-30 06:14] LABS: Bun/Creatinine Ratio 18.5 (12.0-20.0); Calcium, Blood 9.5 mg/dL (8.5-10.1); Creatinine, Blood 1.19 mg/dL (0.60-1.20); Potassium, Blood 3.3 mmol/L (3.5-5.5)
[2024-07-30] MEDS ORDERED: Ibuprofen 400 MG Tab PO PRN (09:55)
[2024-07-30] MEDS ORDERED: Potassium Chloride 40 MEQ in NS 250 ML IV ONE (14:30)
--- NOTE | 2024-07-30 18:38 | NUR ---
SHIFT SUMMARY PT A&O TO SELF. PT ADMITTED DUE TO AMS. PT INC ON BM, AND URINE. ATTENDS CHANGED PRN, PT HAS PERWICK IN PLACE FOR URINE COLLECTION. PT HAS LR RUNNING AT 125ML/HR, PT IS GETTING POTASSIUM REPLENISHED. PT ON ANTIBIOTIC IV, SPEECH EVAL WAS CONSULTED, THEY CAME TO ASSESS BUT SPEECH REPORTED PT GETTING AGITATED AND WILL COME BACK TO ASSESS TOMORROW. PT NPO. TELE D/C. PT ON 3L OF O2 VIA N/C. PT HAS CONT. PULSE OX. SPO2 IS 92%, PT DESATS WHEN ASLEEP/LAYING FLAT. PT TURNED Q2. WOUND CARE COMPLETED. CLEANSED WITH WOUND CARE SPRAY AND 4X4 GAUZE AND PAT DRY AND APPLIED BARRIER CREAM AND COVERED WITH SACRAL MEPILEX ON COCCYX,. ON R ZUNIGA CLEANED WITH WOUND CARE SPRAY AND 4X4 GAUZE, REMOVED 7 SUTURES, PAT DRY AND APPLIED ABD PAD WRAPPED WITH KERLIX AND TENISHA WRAP. ON BILATERAL HEELS, CLEANED WITH WOUND CARE SPRAY AND 4X4 GAUZE AND PAT DRY APPLIED CALCIUM ALGINATE ROPE WITH ADHESIVE BORDER HEEL PROTECTORS. BED IN LOWEST POSITION, CALL LIGHT IN REACH.
[2024-07-31] VITALS (8 sets, daily range): BP systolic 94–138; BP diastolic 57–117
--- NOTE | 2024-07-31 01:22 | NUR ---
PT IS BECOMING MORE AGITATED AND WANTING TO GET OUT OF BED BUT TO WEAK AND UNSAFE TO GET OUT OF BED, HOSPITALIST CALLED AND A ONE TIME ORDER FOR ZYPREXA 2.5MG IM WAS GIVEN.
[2024-07-31] MEDS ORDERED: OLANZapine 10 MG Vial IM ONE (01:25)
--- NOTE | 2024-07-31 03:48 | NUR ---
SHIFT SUMM: PT IS A 79 YO FULL CODE WHO WAS ADMITTED FOR AMS. PT IS CURRENTLY ON Q4 NEURO CHECKS FOR POSSIBLE CVA. PT WANTED TO GET UP THIS SHIFT TO USE THE COMMODE BUT IS VERY UNSTEADY ON FEET AND CANT GET OUT OF BED EVEN WITH 2 PERSON ASSISTANCE. PT IS USING A PURE WICK AND IS GETTING CONT LR FLUIDS AT 125/HR FOR NPO STATUS. PT IS ALSO ON CONT PULSE OX AND 2-3 LITERS OF 02 AND USES 2L BASELINE AT HOME OF OX. PT HAS MULTIPLE WOUNDS WITH WOUND CARE ORDERS (SEE ORDERS). PT AWOKE AGITATED ANC CONFUSED. PT WAS VERY ANXIOUS AND ZYPREXA WAS GIVEN (SEE EMAR AND PREV NOTE). DAYSHIFT REPORTED PT HAVING BLACK BM'S DUE TO IRON SUPPLEMENTS. PT REPORTS WANTING TO LEAVE AND IS VERY AGITATED AND WANTS TO TALK TO AN MAINFRAME SYSTEMS PROGRAMMER AND HIS DOCTOR FIRST THING IN THE MORNING." PT HAS CALL LIGHT AND BED ALARM SET FOR SAFETY.
[2024-07-31 08:01] LABS: Bun/Creatinine Ratio 19.8 (12.0-20.0); Calcium, Blood 9.1 mg/dL (8.5-10.1); Creatinine, Blood 0.86 mg/dL (0.60-1.20); Percent Saturation 10.3 % (20.0-50.0); Thyroid Stimulating Hormone 0.914 uIU/mL (0.360-4.800)
[2024-07-31] MEDS ORDERED: Iron Dextran 50 MG / ML 2ML Vial IV ONE (11:35)
[2024-07-31] MEDS ORDERED: Iron Dextran 975 MG in NS 250 ML IV ONE (14:00)
[2024-07-31 15:46] LABS: C-REACTIVE PROTEIN, EXT RANGE 18.2 mg/dL (0.000-0.300)
[2024-07-31] MEDS ORDERED: Haloperidol Lactate Inj. 5 MG/ML Injection IM PRN (18:20)
--- NOTE | 2024-07-31 18:38 | NUR ---
SHIFT SUMMARY PT ASLEEP MOST OF DAY, WAKENS TO VERBAL STIMULI BUT DOES BECOME AGITATED WITH CARE. PT BECOMING MORE AGITATED TOWARDS LATE AFTERNOON/EVENING. PT CONTINUES TO SAY "LEAVE ME ALONE" AND NOT ALLOW CARE. PT REFUSES TO ALLOW RN AND CAR HIKER TO COMPLETE PERSONAL CARE THIS EVENING. MINIMAL URINE OUTPUT, PT DID HAVE TO BE STRAIGHT CATH X1 TODAY FOR ACUTE URINARY RETENTION, 600 ML DRAINED. NO URINE OUTPUT SINCE AND PT REFUSED BLADDER SCAN TO REASSES AND STATES HE DOES NOT HAVE TO PEE. PT CUSSING AT RN AND HAS HX OF COMBATIVE BEHAVIOR. HALDOL ORDERED PRN FOR AGITATION - HOWEVER PT DAUGHTER ARRIVES AND PT STATES HE IS IN PAIN, PT DID NOT REPORT THIS TO STAFF PRIOR. THIS RN PROVIDED TYLENOL PER ORDERS, WILL ENCOURAGE NOC SHIFT TO HOLD OFF ON HALDOL TO SEE IF PT WILL ALLOW CARE TO BE COMPLETED ONCE PAIN IS MANAGED. Q4H NEURO CHECKS COMPLETED WITH NO ACUTE CHANGES. VITALS WNL. SPEECH EVAL COMPLETED AND ORDERS UPDATED. MINIMAL ORAL INTAKE. PLAN FOR DAUGHTER TO MEET WITH PROIVDER TOMORROW TO DISCUSS POC AND GOALS. PT RESTING IN BED WITH BED IN LOWEST POSITION AND CALL LIGHT WITHIN REACH, BED ALARM ON. DAUGHTER AT BEDSIDE.
[2024-07-31] MEDS ORDERED: ZINC OXIDE/PETROLATUM, YELLOW 1 APPLIC/71 GM PASTE TOP PRN (21:45)
[2024-07-31] MEDS ORDERED: OxyCODONE HCL 5 MG TAB PO PRN (21:45)
--- NOTE | 2024-07-31 22:01 | NUR ---
HOSPITALIST CALLED FOR BREAK THROUGH PAIN MGMT. TYLENOL IS NOT WORKING PT WAS ORDERED 5-10 MG OF OXYCODONE Q4 PRN. PT WAS ALSO ORDERED ZINC OXIDE PASTE TOPICAL FOR SCROTUM AND BUTTOCKS THAT HAS SKIN BREAKDOWN AND VERY RED WITH SORES STARTING ON SCROTUM. PT WAS DIFFICULT TO CHANGE AND VERY PAINFUL
[2024-08-01] MEDS ORDERED: Zinc Oxide Ointment 30 GM TOP PRN (00:30)
--- NOTE | 2024-08-01 03:28 | NUR ---
SHIFT SUMM: PT HAS BEEN BETTER TODAY WITH DAUGHTER AT BEDSIDE.DAUGHTER WAS ABLE TO CALM PT DOWN DURING REPOSITIONING AND CHANGING THE PT'S ATTENDS. ZINC OXIDE OINTMENT ORDERED FOR SORES ON SCROTUM AND OXYCODONE ORDERED FOR PAIN RELIEF (SEE EMAR) AND PREV NOTES. PT IS ON CONT PULSE OX AND 2L NC. PT HAS A PURE WICK IN PLACE BUT NOT MUCH URINE OUTPUT I BLADDER SCANNED PT AND GOT 359, PT HAS HAD SOME ACUTE RETENTION RECENTLY. PT HAS BEEN TAKING MEDS WHOLE WITH PUDDING AND HAS HAD SOME SIPS OF WATER THIS SHIFT AND TOLERATED IT OKAY. PT HAD A BLACK BM THIS SHIFT AND IS ON AN IRON SUPPLEMENT. DAUGHTER STATED SHES WORKING HARD TO TRY TO GET EVERYTHING READY FOR HER DAD TO COME LIVE WITH HER AND WAS EMOTIONAL DISTRAUGHT WITH THE STRESS. PT IS ON CONTINUED LR AT 125ML/HR AND HAS CALL LIGHT IN REACH AND NO REQUESTS.
[2024-08-01 05:02] VITALS: BP 125/67
[2024-08-01 07:31] VITALS: BP 119/53
[2024-08-01] MEDS ORDERED: Dexamethasone Sodium Phosphate 4 MG/ML 1ML Vial IV ONE (12:55)
[2024-08-01] MEDS ORDERED: Lactated Ringer's 1,000 ML IV SCH (14:50)
[2024-08-01 16:29] VITALS: BP 117/68
--- NOTE | 2024-08-01 17:26 | NUR ---
+2-+3 PITTING EDEMA NOTED TO RLE, RN REMOVED TENISHA WRAP AND ASSESSED PULSE USING DOPPLER, PULSE IDENTIFIED WITH GOOD PERFUSION NOTED. NO DISCOLORING OR PAIN OF THE LEG NOTED. RN ELEVATED BLE AND UPDATED PROVIDER VIA PHONE - NO NEW ORDERS AT THIS TIME.
[2024-08-01] MEDS ORDERED: Lactulose 200 GM/300 ML Enema 300ML BTL PR SCH (18:00)
[2024-08-01] MEDS ORDERED: Dexamethasone Sodium Phosphate 4 MG/ML 1ML Vial IV SCH (18:00)
--- NOTE | 2024-08-01 18:38 | NUR ---
SHIFT SUMMARY PT REMAINS ASLEEP MAJORITY OF DAY BUT DOES WAKEN TO VERBAL STIMULI. PT ATE APPROX 90% OF HIS BREAKFAST AND TOOK ALL OF HIS MEDICATIONS TODAY. PT CURRENTLY EATING DINNER WITH FEEDER ASSIST. PT, PT DAUGHTER [place], AND MET AND DISCUSSED CARE-THIS RN PRESENT. DAUGHTER MENTIONS PT HAS HX OF HEP C, STAT AMMONIA LEVEL ORDERED, RESULT 46. LACTULOSE ENEMA ORDERED AND COMPLETED THIS SHIFT. LACTULOSE ENEMA TO BE COMPLETED Q6H PER ORDERS. PT TOLERATED ENEMA WELL. BLACK LIQUIDY STOOL POST ENEMA. HOPEFUL PT WILL HAVE IMPROVEMENT. PAIN WELL MANAGED TODAY - MEDICATED PER EMAR. NEW ONSET EDEMA R FOOT - SEE PREVIOUS NOTE/PROVIDER AWARE AND NO NEW ORDERS. PT URINATING WITH PUREWICK - URINE JEREMY COLORED. LR RUNNING 75 ML/HR CONTINUOUS. PT ALSO STARTED ON IV STEROIDS FOR POSSIBLE CEREBRAL VASCULITIS THIS SHIFT. PT CURRENTLY RESTING IN BED WITH HOSPITAL BED IN LOWEST POSITION, CALL LIGHT WITHIN REACH AND BED ALARM ON. RN ATTEMPTED TO UPDATE DAUGHTER BUT NO ANSWER.
[2024-08-01 20:05] VITALS: BP 103/54
[2024-08-02 02:41] VITALS: BP 147/80
--- NOTE | 2024-08-02 04:25 | NUR ---
SHIFT SUMMARY NO ACUTE CHANGES OVERNIGHT. PT REMAINS ALERT AND ORIENTED TO SELF AND PLACE HOWEVER STRUGGLES REMEMBERING SITUATION. VSS ON 2L NC >92%. PT AGITATED DURING ENEMA ADMINISTRATION'S THROUGHOUT NIGHT BUT WAS ABLE TO TOLERATE. MULTIPLE LARGE BM'S THROUGHOUT NIGHT. PT HAD NO C/O PAIN. LEGS ELEVATED IN BED AND REPOSITIONED Q2HR. NO FURTHER QUESTIONS OR CONCERNS AT THIS TIME. BED ALARM SET WITH CALL FAJARDO WITHIN REACH. WILL CONTINUE WITH PLAN OF CARE.
[2024-08-02 06:26] LABS: Albumin, Blood 1.2 g/dL (3.4-5.0); Albumin/Globulin Ratio 0.2 (0.8-1.8); Bilirubin, Total 0.2 mg/dL (0.1-1.0); Bun/Creatinine Ratio 13.7 (12.0-20.0); Calcium, Blood 8.7 mg/dL (8.5-10.1); Creatinine, Blood 0.8 mg/dL (0.60-1.20); Globulin, Blood 5.7 g/dL (2.2-4.0); Potassium, Blood 3.5 mmol/L (3.5-5.5); Total Protein, Blood 6.9 g/dL (6.4-8.2)
[2024-08-02 07:18] VITALS: BP 131/75
[2024-08-02 11:37] VITALS: BP 134/72
[2024-08-02] MEDS ORDERED: Lactulose 20 GM/30 ML UDC PO SCH (12:00)
[2024-08-02 14:29] LABS: COMPLEMENT COMPONENT 4 26 mg/dL (10-40)
[2024-08-02 15:44] VITALS: BP 133/75
--- NOTE | 2024-08-02 17:43 | NUR ---
SHIFT SUMMARY PT MUCH IMPROVED TODAY SINCE STARTING LACTULOSE AND DECADRON YESTERDAY. PT AWAKE MOST OF DAY. A/O TO SELF AND DAUGHTER, THOUGHT IT WAS JUNE. Q4H NEURO CHECKS COMPLETED. PT PLEASANT AND COOPERATIVE WITH CARE. TREATED FOR PAIN PER EMAR WITH GOOD RESULTS. PT INTAKING ORAL MEDICATIONS WELL CRUSHED IN APPLESAUCE. CONTINUES MINCED AND MOIST DIET. WOUND CARE COMPLETED PER ORDERS. REMAINS ON BASELINE OF 2 L/MIN VIA NC WITH CONTINUOUS PULSE OX IN PLACE - SATING ABOVE 92%. PUREWICK IN PLACE, CHANGED TODAY. PT CURRENTLY RESTING IN BED WITH BED IN LOWEST POSITION AND CALL LIGHT WITHIN REACH. PT DOES NOT USE CALL LIGHT, BED ALARM ON.
[2024-08-02 19:29] VITALS: BP 131/82
[2024-08-02 20:44] LABS: MYELOPEROXIDASE (MPO) AB,IGG 0 AU/mL (0-19); SERINE PROTEINASE 3 PR3 AB,IGG 3 AU/mL (0-19)
[2024-08-02] MEDS ORDERED: Arginine/Glutamine/Calcium Hmb 1 Packet PO SCH (21:00)
[2024-08-03 03:06] VITALS: BP 157/79
--- NOTE | 2024-08-03 03:07 | NUR ---
SHIFT SUMMARY PATIENT HAS BEEN SLEEPING INTERMITTANTLY THROUGHOUT THE NIGHT. HE IS AWAKE AT THIS TIME AND SEEMS MUCH MORE ALERT THAN HE HAS BEEN THE REST OF THE SHIFT. HE DOES NOT HAVE ANY REQUESTS AT THIS TIME. HE IS WATCHING TELEVISION AND IS VERY PLEASANT. HE IS ORIENTED X3. PATIENT HAS HIS CALL LIGHT WITHIN REACH AND HIS BED ALARM IS SET. VITAL SIGNS ARE STABLE. SAFTEY PRECAUTIONS ARE BEING MAINTAINED.
[2024-08-03 06:40] LABS: ANTI-NUCLEAR AB ANA,IGG ELISA None Detected (None Detected)
[2024-08-03 07:07] VITALS: BP 145/87
[2024-08-03 15:21] VITALS: BP 143/74
--- NOTE | 2024-08-03 19:00 | NUR ---
DR. HOOPER CAME BY TO CONSULT ON BILAT FEET WOUNDS AND R LATERAL LE. WOUND CARE COMPLETED WITH DR. HOOPER. NO CHANGES TO WOUND CARE REGIMEN. PER NOTE WOUND CARE EVERY OTHER DAY.
[2024-08-03 19:36] VITALS: BP 143/74
[2024-08-04 01:55] VITALS: BP 141/85
--- NOTE | 2024-08-04 03:50 | NUR ---
SHIFT SUMMARY PATIENT HAS BEEN SLEEPING INTERMITTANTLY THROUGHOUT THE NIGHT. HE HAS HAD 3 BOWEL MOVEMENTS DURING THIS SHIFT. HE IS INCONTINENT OF URINE AND STOOL. PATIENT HAS BEEN ORIENTED X3. VITAL SIGNS ARE STABLE. LR IS INFUSING WITHOUT COMPLICATIONS. PATIENT HAS HIS CALL LIGHT WITHIN REACH AND HIS BED ALARM IS SET. SAFETY PRECAUTIONS ARE BEING MAINTAINED.
[2024-08-04 07:29] VITALS: BP 148/83
--- NOTE | 2024-08-04 12:47 | NUR ---
COMPLETED WOUND CARE TO BILATERAL HEELS. PER DR. JONES CONSULTATION WOUND CARE TO BIALTERAL HEELS EVERY OTHER DAY AND OFFLOAD THEM. DRESSING TO R LATERAL LE C/D/I
[2024-08-04 16:02] VITALS: BP 155/93
[2024-08-04 19:26] VITALS: BP 159/86
[2024-08-05 04:31] VITALS: BP 150/76
[2024-08-05 06:20] LABS: Bun/Creatinine Ratio 45.8 (12.0-20.0); Calcium, Blood 8.8 mg/dL (8.5-10.1); Creatinine, Blood 0.74 mg/dL (0.60-1.20); Potassium, Blood 4.3 mmol/L (3.5-5.5)
--- NOTE | 2024-08-05 06:58 | NUR ---
SHIFT SUMMARY AT START OF SHIFT, PT LYING IN BED WATCHING TV. THROUGHOUT SHIFT, WHEN PT IS SLEEPING, PER PULSEOX, HIS HR DROPS TO 45BPM THEN GOES BACK UP TO 70 S. THIS RN MADE IN HOME SALES CONSULTANT AWARE OF THIS, AND WAS INSTRUCTED TO CHECK THAT RADIAL PULSE MATCHED PULSEOX. AFTER SITTING WITH PT FOR 15MIN, THIS RN VERIFIED THAT PULSEOX AND RADIAL PULSE COINCIDE. PT ALSO DOES NOT SUSTAIN BRADYCARDIA, IT RETURNS TO NORMAL RATE QUICKLY. AFTER SEVERAL HOURS OF PT GOING BACK AND FORTH BETWEEN 43-70BPM, PT PUT ON TELEMETRY FOR CLOSER MONITORING. PT MADE AWARE OF THE SITUATION, AND HAD NO QUESTIONS AT THIS TIME. WOUND PICTURES IN CHART ARE ONE WEEK OLD AND WILL NEED TO BE UPDATED DURING DAY SHIFT. NURSE NOTIFY NOTE MADE IN PT CHART.
[2024-08-05 07:46] VITALS: BP 140/78
[2024-08-05 15:36] VITALS: BP 149/76
[2024-08-05 19:24] VITALS: BP 157/95
[2024-08-05] MEDS ORDERED: Lactulose 20 GM/30 ML UDC PO SCH (21:00)
[2024-08-05 22:40] VITALS: BP 144/79
[2024-08-06 00:53] VITALS: BP 156/82
[2024-08-06 04:06] VITALS: BP 130/84
--- NOTE | 2024-08-06 08:09 | NUR ---
SHIFT SUMMARY AT START OF SHIFT, PT LYING IN BED WATCHING TV. O2 AND HR HAVE BEEN STEADY ALL DAY WITH NO BRADYCARDIC EPISODES PER REPORT. PT HAD FULL JELLO WITH HIS EVENING MEDS. APPROX 2124, PT STATED HE IS HAVING TROUBLE BREATHING. PT [place] D DOWN TO 30 FOR 3 MINUTES. HOSPITALIST NOTIFIED. INSTRUCTED TO MONITOR PT FOR S/SX OF DISTRESS. NO NEW ORDERS GIVEN AT THIS TIME. PT STATED HE HAS A CPAP AT HOME. RT ASSESSED AND SET UP A CPAP FOR HIM. HE REFUSED IT, AND SAID HE DOESN T LIKE TO WEAR IT. HE HAS BEEN ASKING TO CALL HIS DAUGHTER. PT REMINDED OF THE TIME OF 56, AND HE SAID HE D CALL HER LATER. PT STILL GOING INTO SINUS BRADYCARDIA DROPPING TO HIGH 30 S-LOW 40 S, THEN BACK UP TO 60 S. 0535, PT ATTEMPTING TO CLIMB OUT OF BED, SAYING "I'VE GOTTA GO GET MY BOYS READY FOR SCHOOL." THIS RN REORIENTED PT AND GOT HIM SETTLED BACK INTO BED. CONTINUING TO MONITOR. AT END OF SHIFT, PT LYING IN BED IN A PLEASANT MOOD.
[2024-08-06] MEDS ORDERED: JUVEN PACKET1 EAC3 PO (08:23)
[2024-08-06] MEDS ORDERED: LACT10SY PO (08:23)
[2024-08-06] MEDS ORDERED: ZINCTRAL57 GM TOP (08:25)
[2024-08-06] MEDS ORDERED: FURO20 PO (08:25)
[2024-08-06] MEDS ORDERED: JARDIANCE10 MG PO (08:25)
[2024-08-06 08:41] VITALS: BP 143/83
[2024-08-06 10:24] VITALS: BP 142/72
--- NOTE | 2024-08-06 11:33 | NUR ---
DISCHARGE NOTE: PATIENT CLEANED UP AND CHANGED IN PERSONAL CLOTHES. PATIENT'S IV AND TELE REMOVED. PATIENT BELONGINGS COLLECTED. PATIENT DID HAVE A BOWEL MOVEMENT PRIOR TO TRANSPORTING INTO THE WHEELCHAIR, WAS CLEANED UP AND BRIEF CHANGED AGAIN. PATIENT TRANSFERRING INTO WHEELCHAIR WITH ASSIST; PATIENT ONLY TOE TOUCH WEIGHTBEARING AND WAS A PIVOT TRANSFER. PAPERWORK GIVEN TO MEDICAL TRANSPORTER, PATIENT LEFT ATTACHED TO MALE PUREWICK SYSTEM, NO SIGNS OR SYMPTOMS OF DISTRESS WITH DISCHARGE.
== END 2024-08-06 11:30 | DRG 441 ==
LOC: ER 14:52 → MEDS 14:53 → ENPENDDIS 08-06 10:28 → MEDS 08-06 11:30
PROVIDERS: Internal Medicine; Student in an Organized Health Care Education/Training Program; ADMIT Student in an Organized Health Care Education/Training Program
DX: K76.82 Hepatic encephalopathy (principal); L89.613 Pressure ulcer of right heel, stage 3; L89.623 Pressure ulcer of left heel, stage 3; I50.32 Chronic diastolic (congestive) heart failure; E87.1 Hypo-osmolality and hyponatremia; I13.0 Hypertensive heart and chronic kidney disease with heart failure and stage 1 through stage 4 chronic kidney disease, or unspecified chronic kidney disease; J44.9 Chronic obstructive pulmonary disease, unspecified; M10.9 Gout, unspecified; E11.22 Type 2 diabetes mellitus with diabetic chronic kidney disease; N18.30 Chronic kidney disease, stage 3 unspecified; K74.60 Unspecified cirrhosis of liver; E78.5 Hyperlipidemia, unspecified; D50.9 Iron deficiency anemia, unspecified; I65.22 Occlusion and stenosis of left carotid artery; B18.2 Chronic viral hepatitis C; L89.159 Pressure ulcer of sacral region, unspecified stage; F03.90 Unspecified dementia, unspecified severity, without behavioral disturbance, psychotic disturbance, mood disturbance, and anxiety; E87.6 Hypokalemia; G47.33 Obstructive sleep apnea (adult) (pediatric); I25.10 Atherosclerotic heart disease of native coronary artery without angina pectoris; Z88.8 Allergy status to other drugs, medicaments and biological substances; Z98.1 Arthrodesis status; Z95.1 Presence of aortocoronary bypass graft; Z87.891 Personal history of nicotine dependence
CPT/HCPCS: 36415; 51701; 70450; 70551; 71045; 76705; 80048; 80053; 81003; 82140; 82607; 82728; 82746; 82803; 82947; 83516; 83540; 83550; 83605; 83735; 84439; 84443; 85025; 85610; 85651; 86038; 86140; 86160; 86592; 87040; 92526; 92610; 93005; 93010; 94640; 94660; 94664; 94762; 96365; 96372; 96376; 97110; 97162; 97530; 99285-25; A9270; G0378; J0295; J1100; J1650; J1750; J3480; J7050; J7120